=== PATIENT | female | born 1955 | race Caucasian/White ===

== ENCOUNTER → 2020-06-08 | Outpatient (CLI) | payer SELFPAY ==
--- NOTE | 2020-06-08 18:41 | Diagnostic Imaging Report ---
INDICATION: Low back pain. COMPARISON: None FINDINGS: Three views of the lumbar spine demonstrate mild diffuse degenerative disc disease and facet arthropathy. SI joints are symmetric. There is no traumatic malalignment or fracture. No osseous lesion is seen. Moderate constipation is present. IMPRESSION: 1. Mild diffuse degenerative changes. 2. No traumatic malalignment or fracture. 3. Constipation. Dictated by: Dictated on workstation # [id number]
--- NOTE | 2020-06-08 18:42 | Diagnostic Imaging Report ---
INDICATION: Sacral back pain. COMPARISON: None FINDINGS: Three views of the sacrum and coccyx demonstrate normal alignment. There is no subluxation or fracture. No osseous lesion is seen. The SI joints are symmetric. Moderate constipation is present. IMPRESSION: 1. Unremarkable sacrum and coccyx. 2. Constipation. Dictated by: Dictated on workstation # [id number]
== END ==
LOC: RAD FS 16:27
PROVIDERS: ATTEND Nurse Practitioner Family
DX: M47.816 Spondylosis without myelopathy or radiculopathy, lumbar region (principal); K59.00 Constipation, unspecified
CPT/HCPCS: 72100; 72220

== ENCOUNTER 2020-10-15 08:34 | Emergency (ER) | payer OTHER ==
[~2020-10-15] VITALS: Ht 167 cm; Wt 60.0 kg
[2020-10-15] MEDS ORDERED: morphine INJ 10 MG/ML 1ML (SYR OR VIAL) IVP STA (08:59)
[2020-10-15] MEDS ORDERED: ONDANSETRON 4 MG/2 ML (SDV) Z0FRAN IVP ONE (09:00)
[2020-10-15] MEDS ORDERED: KETOROLAC 30 MG/ML VIAL IVP ONE (09:00)
[2020-10-15 09:17] LABS: HEMATOCRIT 44 % (35-52); HEMOGLOBIN 14.4 G/DL (11.5-16.0); MEAN CORPUSCULAR HEMOGLOBIN 30 PG (25-34); WHITE BLOOD COUNT 8.1 10^3/uL (4.3-11.0)
[2020-10-15 09:18] LABS: BASOPHILS % (AUTO) 1 % (0-10); EOSINOPHILS # (AUTO) 0.2 10^3/uL (0.0-0.3); EOSINOPHILS % (AUTO) 2 % (0-10); LYMPHOCYTES # (AUTO) 1.4 X 10^3 (1.0-4.0); LYMPHOCYTES % (AUTO) 17 % (12-44); MEAN CORPUSCULAR HGB CONC 33 G/DL (32-36); MEAN CORPUSCULAR VOLUME 91 FL (80-99); MEAN PLATELET VOLUME 9.9 FL (7.4-10.4); MONOCYTES # (AUTO) 0.5 X 10^3 (0.0-1.0); MONOCYTES % (AUTO) 7 % (0-12); NEUTROPHILS % (AUTO) 74 % (42-75); PLATELET COUNT 302 10^3/uL (130-400)
--- NOTE | 2020-10-15 09:26 | ED General ---
General Chief Complaint: General Problems/Pain Stated Complaint: COCCYX PAIN Nursing Triage Note: Patient presents to the ED with c/o of lower extremity weakness, fecal incontinence, lower back and coccyx pain, and difficulty urinating. Patient states for the past two months she has had intermittent fecal incontinece; she states that she will feel like she needs to have a bowel movement but when she gets to the bathroom she has already had a bowel movement. She reports that she has been seen by her PCP and a was supposed to get an MRI but due to insurance purposes it hasn't been scheduled. She states that today when she woke up she could hardly walk due to the severity of the pain. History of Present Illness Date Seen by Provider: Oct 15, 2020 Time Seen by Provider: 09:25 Initial Comments Patient presenting to the emergency department for evaluation of multiple complaints including back pain lower extremity weakness fecal incontinence difficulty urinating. She says her back pain started 2 months ago and the symptoms have progressed. She says over the past few days she has been wearing a pad and she has not felt that she needed to have a bowel movement but the stool came out on its own. Patient also says that she has been having difficulty urinating as well. I asked her about this and she says that she feels that she needs to urinate but she has to push very hard for the urine to come out. She says she has numbness in her saddle region in between her legs. The weakness is bilateral and she says she has having difficulty ambulating. I asked her if the difficulty ambulating is more so from pain or weakness and she felt that it is more so from pain than actual weakness. She denies any known trauma or overuse. She says she has been following with her doctor for this and has been trying to get an MRI as an outpatient however her insurance would not approve the MRI. She is in no acute distress with normal vital signs. Allergies and Home Medications Allergies Coded Allergies: No Known Drug Allergies (Unverified , 10/15/20) Patient Home Medication List Home Medication List Reviewed: Yes Review of Systems Review of Systems Constitutional: no symptoms reported EENTM: no symptoms reported Respiratory: no symptoms reported Cardiovascular: no symptoms reported Gastrointestinal: other (stool incontinence) Genitourinary: hesitancy Musculoskeletal: back pain Psychiatric/Neurological: Numbness, Weakness All Other Systems Reviewed Negative Unless Noted: Yes Past Eebzdsc-Iwoale-Kzcdpx Hx Patient Social History Tobacco Use?: Yes Tobacco type used: Cigarettes Smoking Status: Current Everyday Smoker Use of E-Cig and/or Vaping dev: No Substance use?: No Alcohol Use?: Yes Alcohol Frequency: Rarely Pt feels they are or have been: No Immunizations Up To Date First/Initial COVID19 Vaccinat: June 2020 COVID19 Vaccine Gis Engineer: [place] Physical Exam Vital Signs Vital Signs - First Documented 10/15/20 08:39 Temp 36.2 Pulse 95 Resp 16 B/P (MAP) 141/119 (126) Pulse Ox 96 O2 Delivery Room Air Capillary Refill : Less Than 3 Seconds Height, Weight, BMI Height: '" Weight: lbs. oz. kg; 21.00 BMI Method: General Appearance: No Apparent Distress, WD/WN HEENT: PERRL/EOMI Neck: Supple Respiratory: No Respiratory Distress Cardiovascular: Regular Rate, Rhythm Gastrointestinal: Non Tender, Soft Rectal: Decreased Tone, Other (rectal and saddle anesthesia) Back: Other (midline and BL paraspinal ttp.) Extremity: Normal Capillary Refill, Normal Inspection Neurologic/Psychiatric: Alert, Oriented x3, Other (big toe 4/5 strength in flexion BL. Big toe extension, ankle flex/ext and knee flex/ext all 5/5) Skin: Warm/Dry Progress/Results/Core Measures Suspected Sepsis SIRS Temperature: Pulse: 95 Respiratory Rate: 16 Laboratory Tests 10/15/20 09:08: White Blood Count 8.1 Blood Pressure 141 /119 Mean: 126 Laboratory Tests 10/15/20 09:08: Platelet Count 302 10/15/20 09:30: Results/Orders Lab Results Laboratory Tests Test 10/15/20 09:08 10/15/20 09:30 Range/Units White Blood Count 8.1 4.3-11.0 10^3/uL Red Blood Count 4.86 4.35-5.85 10^6/uL Hemoglobin 14.4 11.5-16.0 G/DL Hematocrit 44 35-52 % Mean Corpuscular Volume 91 80-99 FL Mean Corpuscular Hemoglobin 30 25-34 PG Mean Corpuscular Hemoglobin Concent 33 32-36 G/DL Red Cell Distribution Width 13.4 10.0-14.5 % Platelet Count 302 130-400 10^3/uL Mean Platelet Volume 9.9 7.4-10.4 FL Immature Granulocyte % (Auto) 0 % Neutrophils (%) (Auto) 74 42-75 % Lymphocytes (%) (Auto) 17 12-44 % Monocytes (%) (Auto) 7 0-12 % Eosinophils (%) (Auto) 2 0-10 % Basophils (%) (Auto) 1 0-10 % Neutrophils # (Auto) 6.0 1.8-7.8 X 10^3 Lymphocytes # (Auto) 1.4 1.0-4.0 X 10^3 Monocytes # (Auto) 0.5 0.0-1.0 X 10^3 Eosinophils # (Auto) 0.2 0.0-0.3 10^3/uL Basophils # (Auto) 0.0 0.0-0.1 10^3/uL Immature Granulocyte # (Auto) 0.0 0.0-0.1 10^3/uL My Orders Orders - SHERMAN CALLAWAY DO Cbc With Automated Diff (10/15/20 08:59) Comprehensive Metabolic Panel (10/15/20 08:59) Partial Thromboplastin Time (10/15/20 08:59) Protime With Inr (10/15/20 08:59) Iv/Invasive Line Insertion .IV start (10/15/20 08:59) Ondansetron Injection (Zofran Injectio (10/15/20 09:00) Ketorolac Injection (Toradol Injection) (10/15/20 09:00) Morphine Injection (Morphine Injection (10/15/20 08:59) Medications Given in ED Current Medications Medications Dose Ordered Sig/Evin Route Start Time Stop Time Status Last Admin Dose Admin Ketorolac Tromethamine 15 mg ONCE ONCE IVP 10/15/20 09:00 10/15/20 09:01 DC 10/15/20 09:18 15 MG Ondansetron HCl 4 mg ONCE ONCE IVP 10/15/20 09:00 10/15/20 09:01 DC 10/15/20 09:18 4 MG Vital Signs/I&O 10/15/20 08:39 Temp 36.2 Pulse 95 Resp 16 B/P (MAP) 141/119 (126) Pulse Ox 96 O2 Delivery Room Air Capillary Refill : Less Than 3 Seconds Blood Pressure Mean: 126 Progress Note : Progress Note Patient has poor rectal tone with saddle anesthesia and subjective complaints of increasing pain and weakness. I am most concerned about cauda equina at this time. I spoke to Dr. Dodd at [facility] to see if they could accommodate her getting an MRI and they said they can do an MRI but did not accept patient as they said she should go to a facility where there is neurosurgery capabilities as to not delay care if she does have abnormal findi ngs on her MRI. I told the patient this and she initially said she would prefer to go to [place] so I called [facility] in [place] and they both had no bed availability. The sister said that she would prefer for them to go to the closest facility to the [facility] which would be [facility] so I spoke to them and they did not have an immediate bed available but they said they would be willing to accommodate her in the emergency room so she will be transferred to soon as possible to the emergency room there for further testing evaluation and treatment. Patient accepted by Dr. Bedoya. She was transferred in stable condition. Departure Impression Primary Impression: Lumbar pain with radiation down right leg Additional Impressions: Fecal incontinence Lower extremity weakness Saddle anesthesia Decreased rectal sphincter tone Disposition: XFER SHT-TRM HOSP Condition: Stable Transfer Transfer Reason: Exceeds level of care Transfer Facility: [facility] Method of Transfer: EMS Departure-Patient Inst. Referrals: SAMY NÚÑEZ APRN (PCP) Primary Care Physician [facility] (Family) Primary Care Physician SHERMAN CALLAWAY DO Oct 15, 2020 09:26
[2020-10-15 09:36] LABS: CHLORIDE 103 MMOL/L (98-107); POTASSIUM 3.7 MMOL/L (3.6-5.0); SODIUM 142 MMOL/L (135-145)
[2020-10-15 09:37] LABS: ALANINE AMINOTRANSFERASE 15 U/L (0-55); ALBUMIN 4.3 GM/DL (3.2-4.5); ALKALINE PHOSPHATASE 157 U/L (40-136); BILIRUBIN,TOTAL 0.3 MG/DL (0.1-1.0); BUN/CREATININE RATIO 20; CALCIUM 9.4 MG/DL (8.5-10.1); CARBON DIOXIDE 29 MMOL/L (21-32); CREATININE SERUM 0.79 MG/DL (0.60-1.30); GFR ESTIMATED > 60; GLUCOSE 110 MG/DL (70-105); TOTAL PROTEIN 6.7 GM/DL (6.4-8.2)
[2020-10-15 10:14] LABS: INR 0.9 (0.8-1.4)
[2020-10-15 10:24] VITALS: BP 104/65
== END 2020-10-15 10:24 | disposition short-term general hospital (02) ==
LOC: MERGE 08:39 → ER FS 08:39
DX: M54.41 Lumbago with sciatica, right side (principal); R15.9 Full incontinence of feces; R53.1 Weakness; G83.4 Cauda equina syndrome; K62.81 Anal sphincter tear (healed) (nontraumatic) (old); F17.210 Nicotine dependence, cigarettes, uncomplicated
CPT/HCPCS: 36415; 80053; 85025; 85610; 85730; 99284

== ENCOUNTER 2020-10-30 09:10 | Outpatient (RCR) | payer OTHER | END 2020-10-30 14:59 | disposition home or self-care (01) | LOC: ONC 09:10 | PROVIDERS: ATTEND Internal Medicine Hematology & Oncology | DX: Z51.0 Encounter for antineoplastic radiation therapy (principal); C18.9 Malignant neoplasm of colon, unspecified; C78.02 Secondary malignant neoplasm of left lung; C78.01 Secondary malignant neoplasm of right lung; F17.210 Nicotine dependence, cigarettes, uncomplicated; Z79.899 Other long term (current) drug therapy | CPT/HCPCS: 77290; 77295; 77300; 77334 ×2; 77412; 77417; G0463; 77338; 77470; 99204; 99214 ==

== ENCOUNTER → 2020-11-03 | Outpatient (CLI) | payer OTHER ==
--- NOTE | 2020-11-04 12:03 | Diagnostic Imaging Report ---
Indication: Lung cancer for staging. Comparison or correlation made with outside CT chest performed 10/17/2020. No prior metabolic imaging. Patient has a remote history of colon cancer The patient received 15 mCi intravenous dose 18 F fluorodeoxyglucose after one hour CT fusion PET calvarial vertex to the mid thighs performed. FINDINGS: An airspace nodule with a diameter 7 mm in the right upper lobe laterally has an SUV max of 2.7. Just inferomedial to that mass a right upper lobe nodule measuring 11 mm has an SUV value maximum of 3.3. Right lower lobe mass measuring 8 mm in diameter has an SUV value of 2.5 Max. The left lower lobe mass 1.3 cm diameter soft tissue in density has an SUV value of 3.1 Max. No FDG avid or pathological appearing axillary, hilar or mediastinal lymph nodes. Additional smaller nodules are present on CT but have low levels or imperceptible levels of metabolic activity likely owing to their small size. Scalp, calvarium and intracranial contents revealed no hypermetabolic asymmetry. Orbits, sinuses and nasal spaces, nasopharynx, oropharynx and hypopharynx reveal no suspicious finding. No pathological-appearing cervical lymph nodes and supraclavicular fossae appeared normal. Liver and adrenals showed no suspicious uptake. There is no metabolically active or pathologically enlarged abdominal, pelvic, mesenteric or retroperitoneal lymph nodes. There are postsurgical changes of the rectum. There is abnormal soft tissue thickening and hypermetabolism in the presacral soft tissues as well as a heterogeneous irregular lucencies in the lower sacrum and upper coccyx eccentric greater right than left. While presacral thickening is a typical finding and post-therapeutic rectum, the degree of FDG avidity is a greater than typically encountered with peak SUV values of 9.8. Regional rectal neoplastic recurrence could not be excluded and its infiltration of the adjacent sacrum is also suspected. This could all be on the basis of a recent post radiation change although correlate clinically. The ileo-inguinal lymph node chains were normal. There is no abdominal, mesenteric or retroperitoneal adenopathy. There is no ascites. Again the liver is normal. There is some physiologic uptake at the level crossing near the ileocecal valve. IMPRESSION: Multiple small moderately hypermetabolic pulmonary nodules suspicious for metastatic disease. Abnormal presacral tissue thickening with abnormal appearance of the lower sacrum both the soft tissue and the sacral bone is a hypermetabolic. Neoplastic recurrence at that level could not be excluded but could also be on the basis of post radiation sequelae. Correlate with the recent pelvic radiation. Negative liver. The remaining abdomen, neck and head were normal. Dictated by: Dictated on workstation # [id number]
== END ==
LOC: RAD 13:30
PROVIDERS: ATTEND Internal Medicine Hematology & Oncology
DX: C20 Malignant neoplasm of rectum (principal); C78.01 Secondary malignant neoplasm of right lung
CPT/HCPCS: 78815; A9552

== ENCOUNTER 2020-11-04 06:24 | Outpatient (CLI) | payer OTHER ==
[~2020-11-04] VITALS: Ht 167.7 cm; Wt 55.6 kg
[2020-11-06] MEDS ORDERED: HYDR-3820 PO (14:09)
[2020-11-06] MEDS ORDERED: GABA-486 PO (14:09)
[2020-11-06] MEDS ORDERED: MORP-68 PO (14:09)
[2020-11-06] MEDS ORDERED: SENN1TAB33 PO (14:09)
== END 2020-11-06 14:17 | disposition home or self-care (01) ==
LOC: PREOP 06:24
PROVIDERS: ATTEND Surgery
DX: Z01.818 Encounter for other preprocedural examination (principal)

== ENCOUNTER 2020-11-11 12:31 | Day surgery (SDC) | payer OTHER ==
[~2020-11-11] VITALS: Ht 167.7 cm; Wt 55.6 kg
[2020-11-11] VITALS (8 sets, daily range): BP systolic 96–118; BP diastolic 63–92
[~2020-11-11 12:31] MED LIST: GABA-486 PO; HYDR-3820 PO; MORP-68 PO; SENN1TAB33 PO
[2020-11-11] MEDS ORDERED: LIDOCAINE/EPI 1%-1:100,000 (XYLOCAINE) 20ML ONE (12:44)
[2020-11-11] MEDS ORDERED: 0.9% SODIUM CHLORIDE PF INJ 20 ML VIAL ONE (12:44)
[2020-11-11] MEDS ORDERED: HEParin (CENTRAL IV FLUSH) 500 UNIT/5 ML SYR ONE (12:44)
[2020-11-11] MEDS ORDERED: LACTATED RINGERS 1,000 ML IV PRN (12:45)
[2020-11-11] MEDS ORDERED: ceFAZolin INJECTION 1,000 MG in WATER (STERILE) FOR INJECTION 10 ML IV ONE (12:45)
--- NOTE | 2020-11-11 12:56 | Progress Note-Pre Operative ---
Pre-Operative Progress Note H&P Reviewed The H&P was reviewed, patient examined and no changes noted. Time Seen by Provider: 12:52 Date H&P Reviewed: Nov 11, 2020 Time H&P Reviewed: 12:52 Pre-Operative Diagnosis: Colon CA, Venous insufficiency BROOKLYN WARREN DO Nov 11, 2020 12:56
[2020-11-11] MEDS ORDERED: MIDAZOLAM 2 MG/2 ML (VERSED) VIAL ONE ×2 (14:25→14:38)
[2020-11-11] MEDS ORDERED: KETAMINE SYRINGE 50 MG/5 ML SYRINGE ONE (14:25)
[2020-11-11] MEDS ORDERED: LIDOCAINE PF 2% 5 ML (XYLOCAINE) VIAL ONE (14:25)
[2020-11-11] MEDS ORDERED: proPOfol 200 MG/20 ML (DIPRIVAN) VIAL IV ONE (14:25)
--- NOTE | 2020-11-11 15:19 | Progress Note-Post Operative ---
Post-Operative Progess Note Surgeon (s)/Blocker And Cutter Contact Lens (s) Surgeon BROOKLYN WARREN DO Blocker And Cutter Contact Lens: none Pre-Operative Diagnosis Colon CA, Venous insufficiency Post-Operative Diagnosis same Procedure & Operative Findings Date of Procedure 11/11/20 Procedure Performed/Findings PROCEDURE: Monika-Cath placement The patient was taken to the operating suite, was prepped and draped in the sterile fashion. A surgical pause was performed. Local anesthetic was infiltrated at the clavicle and along the tract to the right anterior chest, where more local was placed so the pocket could be created. Using an 18 gauge finder needle with negative inspiration the right subclavian vein was accessed on the first attempt and dark nonpulsatile blood was withdrawn. The wire was inserted and fluoroscopy assured proper placement. The needle was removed. The regular wire was inserted and fluoroscopy assured proper placement. The wire was then secured. A #11 blade scalpel was used to make an incision over the right chest and along guidewire. Cautery was used to dissect down to the pectoral fascia. A pocket was created with blunt dissection. The dilator sheath was then advanced over the wire under fluoroscopy and the dilator and wire were removed. The Groshong catheter was inserted through the sheath and the sheath was then removed. The Groshong wire was removed. The catheter was then tunneled to the right chest pocket. Fluoroscopy was used to cut to length and this was then attached to the port which was then placed within the pocket. The port was then accessed without difficulty. It was then flushed with saline and then heparin. The subcutaneous tissues were then reapproximated using 3-0 Vicryl. Finally the skin was closed with 4-0 undyed monocryl, 3 interrupted sutures. The areas were then washed and dried. Skin Affix was placed over incision. The insertion point of the neck Skin Affix was placed over the incision. The patient tolerated the procedure well without complication and was taken to recovery room in stable condition. Anesthesia Type IV sedation by Anesthesia Estimated Blood Loss Estimated blood loss (mL): appx 15ml Specimens/Packing Specimens Removed BROOKLYN Larose DO Nov 11, 2020 15:19
--- NOTE | 2020-11-11 15:20 | Discharge Inst-Surgical ---
Discharge Inst-Surgical Depart Medication/Instructions New, Converted or Re-Newed RX: Other (use home meds) Patient Instructions Follow up Appt: Make appointment for 1 week. [phone] Instructions: No lifting greater than 20 pounds. No strenuous activity. May shower in 24 hours, no tub bath or soaking. Use incentive spirometer at home as directed. No Smoking Skin/Wound Care: May remove bandages in am. You need to leave the Dermabond on incision it will fall off on it's own. Symptoms to Report: Appetite Changes, Extremity Discoloration, Numbness/Tingling, Swelling Increased, Bleeding Excessive, Eyesight Changes, Pain Increased, Urine Color Change, Constipation(Persistent), Fever over 101 degree F, Pain/Pressure in chest, Urinating Difficulty, Cough Up/Vomit Blood, Heart Beat Irreg/Pounding, Pain/Pressure in jaw, Cramps in feet or legs, Lightheadedness, Pain/Pressure in shoulder, Diarrhea(Persistent), Memory Changes Suddenly, Questions/Concerns, Weight gain consecutive days, Dizziness/Fainting, Nausea/Vomiting, Shortness of Breath, Weight gain over 2 pounds If questions or concerns contact your physician Or seek help at emergency department. Activity Activity as Tolerated: Yes Activity Instructions: Avoid Stress to Incision Driving Instructions: No Driving/Refer to Dr. Medrano Discharge Diet: No Restrictions Diet After 24 Hours: Clear Liquid if Nauseous If Any Problems/Questions/Issu: Contact Your Physician, Go to Emergency Room Skin/Wound Care Infection Signs and Symptoms: Increased Redness, Foul Odor of Wound, Increased Drainage, Skin Itchy or Has a Rash, Increased Swelling, Temperature Above 101 F Bathing Instructions: Shower Ice Pack: Ice On and Off Site BROOKLYN WARREN DO Nov 11, 2020 15:20
--- NOTE | 2020-11-11 15:22 | Anesthesia-General Post-Op ---
MAC Patient Condition Mental Status/LOC: Same as Preop Cardiovascular: Satisfactory Nausea/Vomiting: Absent Respiratory: Satisfactory Pain: Controlled Complications: Absent Post Op Complications Complications None Follow Up Care/Instructions Patient Instructions None needed. Anesthesiology Discharge Order Discharge Order Patient is doing well, no complaints, stable vital signs, no apparent adverse anesthesia problems. BILL TEMPLE DO Nov 11, 2020 15:22
[2020-11-11] MEDS ORDERED: ONDANSETRON 4 MG/2 ML (SDV) Z0FRAN IVP PRN (15:30)
[2020-11-11] MEDS ORDERED: morphine INJ 10 MG/ML 1ML (SYR OR VIAL) IVP ONE (15:30)
--- NOTE | 2020-11-11 16:49 | Diagnostic Imaging Report ---
INDICATION: Port-A-Cath placement. History of lung cancer. COMPARISON: None. TOTAL FLUOROSCOPY TIME: 18 seconds. TOTAL NUMBER OF FLUOROSCOPIC IMAGES SAVED: 1. FINDINGS: Single intraoperative image intensifier view of the chest was obtained during Port-A-Cath placement. Image provided shows right subclavian venous approach. Central tip terminates in the low SVC. Evaluation for pneumothorax is suboptimal given fluoroscopic modality. Please note, interpreting radiologist was not present during the procedure. IMPRESSION: 1. Fluoroscopic guidance provided during Port-A-Cath placement. Dictated by: Dictated on workstation # [id number]
== END 2020-11-11 16:40 | disposition home or self-care (01) ==
LOC: SDC 12:31
PROVIDERS: ATTEND Surgery
DX: C18.9 Malignant neoplasm of colon, unspecified (principal); I87.2 Venous insufficiency (chronic) (peripheral); F17.210 Nicotine dependence, cigarettes, uncomplicated
CPT/HCPCS: 76000; 87081

== ENCOUNTER → 2021-01-07 | Outpatient (CLI) | payer OTHER ==
[~2021-01-07] MED LIST changes: +CATHETER FLUSH 10 ML SYR IV PRN; +HOLD METFORMIN - RECEIVED CONTRAST 20 ML VIAL IV SCH; +IOHEXOL 350 MG/ML 100 ML (OMNIPAQUE 350) VIAL IV ONE; +NS 100 ML (IVPB) BAG IV ONE
[2021-01-07] MEDS: CATHETER FLUSH 10 ML SYR IV PRN ×2 (12:52→13:17)
--- NOTE | 2021-01-07 14:57 | Diagnostic Imaging Report ---
EXAMINATION: CT chest with intravenous contrast, CT abdomen and pelvis without and with intravenous contrast. TECHNIQUE: Pre and post intravenous contrast axial imaging of the abdomen and pelvis and post contrast axial imaging of the chest were performed. All CT scans use one or more of the following dose optimizing techniques: automated exposure control, MA and/or KvP adjustment based on patient size and exam type or iterative reconstruction. HISTORY: SECONDARY MALIGNANT NEOPLASM OF BONE COMPARISON: PET/CT 11/03/2020 FINDINGS: Thyroid: The thyroid is normal. Mediastinum: Heart size is normal without significant pericardial effusion. Calcifications of the aorta and coronary vessels. Thoracic aorta is normal in caliber. Right-sided portacatheter is present. No suspicious lymphadenopathy. Lungs and airways: There are background emphysematous changes of the lungs without consolidation, pleural effusion, or pneumothorax. There are multiple bilateral pulmonary nodules which are stable in size from 11/03/2020. A dental sales representative nodule in the right lower lobe measures 1.0 cm (series 5 image 74). A dental sales representative nodule in the right upper lobe measures 1.1 cm (series 5 image 55). A dental sales representative nodule left lower lobe measures 1.2 cm (series 5 image 103). There is increased fibrosis or consolidation within the right middle lobe. The airways are normal. Solid organs: The liver is normal without focal lesion. The gallbladder is normal. There is no biliary ductal dilation. Pancreas is normal. Spleen is normal. Adrenal glands are normal. The kidneys are normal without hydronephrosis. Bowel: Surgical changes of the colon. There is no bowel obstruction. Moderate amount of stool seen throughout the colon. Peritoneum: There is no intraperitoneal free fluid or free air. No suspicious lymphadenopathy. Vasculature: Calcification of the aorta without aneurysm. Musculoskeletal: Stable appearance of the mixed lytic and soft tissue mass within the sacrum and presacral space. There is a linear abnormality through the right sacral ala which is new from prior exam. Pelvis: The uterus and adnexa are normal. The urinary bladder is normal. IMPRESSION: 1. Stable bilateral pulmonary nodules. 2. Stable appearance of the mixed lytic and soft tissue mass within the sacrum and presacral space. 3. Likely new right sacral fracture concern for pathologic fracture. Dictated by: Dictated on workstation # [id number]
--- NOTE | 2021-01-07 16:30 | Diagnostic Imaging Report ---
Nuclear medicine skeletal scintigraphy. HISTORY: Bilateral sacral pain. COMPARISON: None available. TECHNIQUE: After intravenous administration of 24 mCi of technetium 99 MDP, the patient was allowed uptake for three hours. Subsequently, whole body anterior and posterior projection images were obtained as well as dedicated right and left lateral views of the pelvis. FINDINGS: There is physiologic distribution of radiotracer including in the collecting systems and bladder. The bladder partially obscures the pelvis. In the region of the vertically oriented fracture through the right sacrum and the mixed lytic and sclerotic lesion in the right sacrum on prior CT, there is minimally increased uptake on the bone scan seen only in the posterior projection. However, portions of this area are obscured by urinary bladder activity. No other focal uptake is seen. IMPRESSION: 1. The sacrum is largely obscured by bladder activity. There is minimally increased uptake in the right aspect of the sacrum in the previously seen area of the soft tissue mass and fracture. Dictated by: Dictated on workstation # [id number]
== END ==
LOC: CARD 12:00
PROVIDERS: ATTEND Nurse Practitioner Adult Health
DX: C20 Malignant neoplasm of rectum (principal); C79.51 Secondary malignant neoplasm of bone; C78.01 Secondary malignant neoplasm of right lung; R91.8 Other nonspecific abnormal finding of lung field
CPT/HCPCS: 71260; 74178; 78306; A9503

== ENCOUNTER 2021-01-18 12:52 | Outpatient (RCR) | payer OTHER ==
[2020-11-10 10:09] LABS: BASOPHILS % (AUTO) 0 % (0-10); EOSINOPHILS # (AUTO) 0.3 10^3/uL (0.0-0.3); EOSINOPHILS % (AUTO) 3 % (0-10); HEMATOCRIT 42 % (35-52); HEMOGLOBIN 13.3 g/dL (11.5-16.0); LYMPHOCYTES # (AUTO) 0.9 10^3/uL (1.0-4.0); LYMPHOCYTES % (AUTO) 10 % (12-44); MEAN CORPUSCULAR HEMOGLOBIN 29 pg (25-34); MEAN CORPUSCULAR HGB CONC 32 g/dL (32-36); MEAN CORPUSCULAR VOLUME 93 fL (80-99); MEAN PLATELET VOLUME 9.8 fL (9.0-12.2); MONOCYTES # (AUTO) 0.6 10^3/uL (0.0-1.0); MONOCYTES % (AUTO) 7 % (0-12); NEUTROPHILS # (AUTO) 6.7 10^3/uL (1.8-7.8); NEUTROPHILS % (AUTO) 79 % (42-75); PLATELET COUNT 385 10^3/uL (130-400); WHITE BLOOD COUNT 8.5 10^3/uL (4.3-11.0)
[2020-11-10 10:27] LABS: ALBUMIN 3.9 GM/DL (3.2-4.5); BILIRUBIN,TOTAL 0.4 MG/DL (0.1-1.0); CALCIUM 9.6 MG/DL (8.5-10.1); CREATININE SERUM 0.75 MG/DL (0.60-1.30); MAGNESIUM 1.9 MG/DL (1.6-2.4); POTASSIUM 4.3 MMOL/L (3.6-5.0); TOTAL PROTEIN 6.9 GM/DL (6.4-8.2)
[2020-11-18 14:56] LABS: CALCIUM 9.4 MG/DL (8.5-10.1); CREATININE SERUM 0.75 MG/DL (0.60-1.30); POTASSIUM 4.9 MMOL/L (3.6-5.0)
[2020-11-25 14:11] LABS: BASOPHILS % (AUTO) 0 % (0-10); EOSINOPHILS # (AUTO) 0.3 10^3/uL (0.0-0.3); EOSINOPHILS % (AUTO) 5 % (0-10); HEMATOCRIT 41 % (35-52); LYMPHOCYTES # (AUTO) 0.8 10^3/uL (1.0-4.0); LYMPHOCYTES % (AUTO) 15 % (12-44); MEAN CORPUSCULAR HEMOGLOBIN 30 pg (25-34); MEAN CORPUSCULAR HGB CONC 32 g/dL (32-36); MEAN CORPUSCULAR VOLUME 94 fL (80-99); MEAN PLATELET VOLUME 10.2 fL (9.0-12.2); MONOCYTES # (AUTO) 0.5 10^3/uL (0.0-1.0); MONOCYTES % (AUTO) 10 % (0-12); NEUTROPHILS # (AUTO) 3.7 10^3/uL (1.8-7.8); NEUTROPHILS % (AUTO) 70 % (42-75); PLATELET COUNT 226 10^3/uL (130-400); WHITE BLOOD COUNT 5.3 10^3/uL (4.3-11.0)
[2020-11-25 14:21] LABS: CALCIUM 9.4 MG/DL (8.5-10.1); CREATININE SERUM 0.76 MG/DL (0.60-1.30); POTASSIUM 4.2 MMOL/L (3.6-5.0)
[2020-12-01 10:06] LABS: BASOPHILS % (AUTO) 1 % (0-10); EOSINOPHILS # (AUTO) 0.2 10^3/uL (0.0-0.3); EOSINOPHILS % (AUTO) 4 % (0-10); HEMATOCRIT 44 % (35-52); LYMPHOCYTES # (AUTO) 0.5 10^3/uL (1.0-4.0); LYMPHOCYTES % (AUTO) 11 % (12-44); MEAN CORPUSCULAR HEMOGLOBIN 30 pg (25-34); MEAN CORPUSCULAR HGB CONC 32 g/dL (32-36); MEAN CORPUSCULAR VOLUME 93 fL (80-99); MEAN PLATELET VOLUME 10.1 fL (9.0-12.2); MONOCYTES # (AUTO) 0.5 10^3/uL (0.0-1.0); MONOCYTES % (AUTO) 12 % (0-12); NEUTROPHILS # (AUTO) 3.2 10^3/uL (1.8-7.8); NEUTROPHILS % (AUTO) 73 % (42-75); PLATELET COUNT 261 10^3/uL (130-400); WHITE BLOOD COUNT 4.4 10^3/uL (4.3-11.0)
[2020-12-01 10:22] LABS: CALCIUM 9.7 MG/DL (8.5-10.1); CREATININE SERUM 0.78 MG/DL (0.60-1.30); POTASSIUM 4.1 MMOL/L (3.6-5.0)
[2020-12-08 10:10] LABS: BASOPHILS % (AUTO) 1 % (0-10); EOSINOPHILS # (AUTO) 0.2 10^3/uL (0.0-0.3); EOSINOPHILS % (AUTO) 4 % (0-10); HEMATOCRIT 42 % (35-52); HEMOGLOBIN 13.2 g/dL (11.5-16.0); LYMPHOCYTES # (AUTO) 0.6 10^3/uL (1.0-4.0); LYMPHOCYTES % (AUTO) 14 % (12-44); MEAN CORPUSCULAR HEMOGLOBIN 30 pg (25-34); MEAN CORPUSCULAR HGB CONC 32 g/dL (32-36); MEAN CORPUSCULAR VOLUME 94 fL (80-99); MEAN PLATELET VOLUME 10.3 fL (9.0-12.2); MONOCYTES # (AUTO) 0.5 10^3/uL (0.0-1.0); MONOCYTES % (AUTO) 11 % (0-12); NEUTROPHILS # (AUTO) 2.9 10^3/uL (1.8-7.8); NEUTROPHILS % (AUTO) 71 % (42-75); PLATELET COUNT 239 10^3/uL (130-400); WHITE BLOOD COUNT 4.1 10^3/uL (4.3-11.0)
[2020-12-08 10:32] LABS: ALBUMIN 3.9 GM/DL (3.2-4.5); BILIRUBIN,TOTAL 0.4 MG/DL (0.1-1.0); CALCIUM 9.6 MG/DL (8.5-10.1); CREATININE SERUM 0.69 MG/DL (0.60-1.30); POTASSIUM 4.1 MMOL/L (3.6-5.0); TOTAL PROTEIN 6.8 GM/DL (6.4-8.2)
[2020-12-23 10:17] LABS: BASOPHILS % (AUTO) 1 % (0-10); EOSINOPHILS # (AUTO) 0.1 10^3/uL (0.0-0.3); EOSINOPHILS % (AUTO) 4 % (0-10); HEMATOCRIT 41 % (35-52); HEMOGLOBIN 13.1 g/dL (11.5-16.0); LYMPHOCYTES # (AUTO) 0.4 10^3/uL (1.0-4.0); LYMPHOCYTES % (AUTO) 12 % (12-44); MEAN CORPUSCULAR HEMOGLOBIN 30 pg (25-34); MEAN CORPUSCULAR HGB CONC 32 g/dL (32-36); MEAN CORPUSCULAR VOLUME 95 fL (80-99); MEAN PLATELET VOLUME 10.2 fL (9.0-12.2); MONOCYTES # (AUTO) 0.4 10^3/uL (0.0-1.0); MONOCYTES % (AUTO) 11 % (0-12); NEUTROPHILS # (AUTO) 2.7 10^3/uL (1.8-7.8); NEUTROPHILS % (AUTO) 73 % (42-75); PLATELET COUNT 230 10^3/uL (130-400); WHITE BLOOD COUNT 3.7 10^3/uL (4.3-11.0)
[2020-12-23 10:34] LABS: ALBUMIN 4.1 GM/DL (3.2-4.5); BILIRUBIN,TOTAL 0.6 MG/DL (0.1-1.0); CALCIUM 9.8 MG/DL (8.5-10.1); CREATININE SERUM 0.73 MG/DL (0.60-1.30); POTASSIUM 3.8 MMOL/L (3.6-5.0); TOTAL PROTEIN 6.7 GM/DL (6.4-8.2)
[2021-01-13 13:20] LABS: BASOPHILS % (AUTO) 0 % (0-10); EOSINOPHILS % (AUTO) 1 % (0-10); HEMATOCRIT 44 % (35-52); HEMOGLOBIN 13.9 g/dL (11.5-16.0); LYMPHOCYTES # (AUTO) 0.6 10^3/uL (1.0-4.0); LYMPHOCYTES % (AUTO) 10 % (12-44); MEAN CORPUSCULAR HEMOGLOBIN 30 pg (25-34); MEAN CORPUSCULAR HGB CONC 32 g/dL (32-36); MEAN CORPUSCULAR VOLUME 94 fL (80-99); MEAN PLATELET VOLUME 9.7 fL (9.0-12.2); MONOCYTES # (AUTO) 0.4 10^3/uL (0.0-1.0); MONOCYTES % (AUTO) 7 % (0-12); NEUTROPHILS % (AUTO) 82 % (42-75); PLATELET COUNT 338 10^3/uL (130-400); WHITE BLOOD COUNT 6.1 10^3/uL (4.3-11.0)
[2021-01-13 13:41] LABS: ALBUMIN 4.1 GM/DL (3.2-4.5); BILIRUBIN,TOTAL 0.4 MG/DL (0.1-1.0); CALCIUM 9.8 MG/DL (8.5-10.1); CREATININE SERUM 0.74 MG/DL (0.60-1.30)
[~2021-01-18] VITALS: Ht 167.6 cm; Wt 53.1 kg
[~2021-01-18 12:52] MED LIST changes: +BEVACIZUMAB BVZR IV SCH; -CATHETER FLUSH 10 ML SYR IV PRN; +D5W 500 ML IV (CANCER CTR) 500 ML IV SCH; +D5W IV SCH; +FOSAPREPITANT (CANCER CENTER) 150 MG in NS (IVPB) CANCER CENTER ONLY 150 ML IV SCH; -HOLD METFORMIN - RECEIVED CONTRAST 20 ML VIAL IV SCH; -IOHEXOL 350 MG/ML 100 ML (OMNIPAQUE 350) VIAL IV ONE; +LEUCOVORIN CALCIUM IV SCH; -NS 100 ML (IVPB) BAG IV ONE; +NS IV SCH; +OXALIPLATIN 100 MG, OXALIPLATIN (GENERIC) 30 MG in D5W 250 ML IVPB (CANCER CTR) 250 ML IV SCH
== END 2021-01-31 | disposition home or self-care (01) ==
LOC: ONC 12:52
PROVIDERS: ATTEND Internal Medicine Hematology & Oncology
DX: Z51.0 Encounter for antineoplastic radiation therapy (principal); C20 Malignant neoplasm of rectum; C18.9 Malignant neoplasm of colon, unspecified; C78.01 Secondary malignant neoplasm of right lung; I87.2 Venous insufficiency (chronic) (peripheral)
CPT/HCPCS: 36591; 77336; 77386; 80048; 80053; 82378; 83735; 85025; 96367; 96368; 96375; 96413; 96416; 99213

== ENCOUNTER → 2021-01-25 | Outpatient (CLI) | payer OTHER ==
[~2021-01-25] MED LIST changes: -BEVACIZUMAB BVZR IV SCH; -D5W 500 ML IV (CANCER CTR) 500 ML IV SCH; -D5W IV SCH; -FOSAPREPITANT (CANCER CENTER) 150 MG in NS (IVPB) CANCER CENTER ONLY 150 ML IV SCH; -LEUCOVORIN CALCIUM IV SCH; -NS IV SCH; -OXALIPLATIN 100 MG, OXALIPLATIN (GENERIC) 30 MG in D5W 250 ML IVPB (CANCER CTR) 250 ML IV SCH
[2021-01-25 12:30] LABS: HEMATOCRIT 40 % (35-52); MEAN CORPUSCULAR HEMOGLOBIN 30 pg (25-34); MEAN CORPUSCULAR HGB CONC 33 g/dL (32-36); MEAN CORPUSCULAR VOLUME 92 fL (80-99); MEAN PLATELET VOLUME 10.6 fL (9.0-12.2); PLATELET COUNT 284 10^3/uL (130-400); WHITE BLOOD COUNT 6.2 10^3/uL (4.3-11.0)
[2021-01-25 12:31] LABS: BASOPHILS % (AUTO) 0 % (0-10); EOSINOPHILS # (AUTO) 0.2 10^3/uL (0.0-0.3); EOSINOPHILS % (AUTO) 3 % (0-10); LYMPHOCYTES # (AUTO) 0.7 X 10^3 (1.0-4.0); LYMPHOCYTES % (AUTO) 12 % (12-44); MONOCYTES # (AUTO) 0.5 X 10^3 (0.0-1.0); MONOCYTES % (AUTO) 9 % (0-12); NEUTROPHILS # (AUTO) 4.8 X 10^3 (1.8-7.8); NEUTROPHILS % (AUTO) 77 % (42-75)
== END ==
LOC: LAB FS 12:18
PROVIDERS: ATTEND Nurse Practitioner Adult Health
DX: C20 Malignant neoplasm of rectum (principal)
CPT/HCPCS: 36415; 85025

== ENCOUNTER → 2021-01-25 | Outpatient (CLI) | payer OTHER ==
[2021-01-25 11:56] LABS: CALCIUM 8.9 MG/DL (8.5-10.1); CREATININE SERUM 0.69 MG/DL (0.60-1.30); POTASSIUM 4.3 MMOL/L (3.6-5.0)
== END ==
LOC: LAB FS 10:13
PROVIDERS: ATTEND Internal Medicine Hematology & Oncology
DX: C20 Malignant neoplasm of rectum (principal)
CPT/HCPCS: 36415; 80048

== ENCOUNTER → 2021-02-08 | Outpatient (CLI) | payer OTHER ==
[2021-02-08 11:02] LABS: HEMATOCRIT 40 % (35-52); HEMOGLOBIN 13.4 g/dL (11.5-16.0); MEAN CORPUSCULAR HEMOGLOBIN 30 pg (25-34); MEAN CORPUSCULAR HGB CONC 33 g/dL (32-36); MEAN CORPUSCULAR VOLUME 90 fL (80-99); WHITE BLOOD COUNT 7.6 10^3/uL (4.3-11.0)
[2021-02-08 11:03] LABS: BASOPHILS % (AUTO) 0 % (0-10); EOSINOPHILS # (AUTO) 0.1 10^3/uL (0.0-0.3); EOSINOPHILS % (AUTO) 1 % (0-10); LYMPHOCYTES # (AUTO) 0.5 X 10^3 (1.0-4.0); LYMPHOCYTES % (AUTO) 7 % (12-44); MEAN PLATELET VOLUME 10.3 fL (9.0-12.2); MONOCYTES # (AUTO) 1.1 X 10^3 (0.0-1.0); MONOCYTES % (AUTO) 14 % (0-12); NEUTROPHILS # (AUTO) 5.9 X 10^3 (1.8-7.8); NEUTROPHILS % (AUTO) 77 % (42-75); PLATELET COUNT 261 10^3/uL (130-400)
[2021-02-08 12:00] LABS: EOSINOPHILS % (MANUAL) 1 %; LYMPHOCYTES % (MANUAL) 9 %; MONOCYTES % (MANUAL) 7 %; NEUTROPHILS % (MANUAL) 83 %; PLATELET ESTIMATE ADEQUATE
[2021-02-08 12:01] LABS: RBC MORPH NORMAL
[2021-02-08 12:25] LABS: CALCIUM 9.3 MG/DL (8.5-10.1); CREATININE SERUM 0.62 MG/DL (0.60-1.30); POTASSIUM 4.2 MMOL/L (3.6-5.0)
== END ==
LOC: LAB FS 10:10
PROVIDERS: ATTEND Nurse Practitioner Adult Health
DX: C20 Malignant neoplasm of rectum (principal); C79.51 Secondary malignant neoplasm of bone; C78.01 Secondary malignant neoplasm of right lung
CPT/HCPCS: 36415; 80048; 85007; 85027

== ENCOUNTER → 2021-02-22 | Outpatient (CLI) | payer OTHER ==
[2021-02-22 10:31] LABS: HEMATOCRIT 41 % (35-52); HEMOGLOBIN 13.1 g/dL (11.5-16.0); MEAN CORPUSCULAR HEMOGLOBIN 30 pg (25-34); MEAN CORPUSCULAR HGB CONC 32 g/dL (32-36); MEAN CORPUSCULAR VOLUME 93 fL (80-99); PLATELET COUNT 390 10^3/uL (130-400); WHITE BLOOD COUNT 4.2 10^3/uL (4.3-11.0)
[2021-02-22 10:32] LABS: BASOPHILS % (AUTO) 1 % (0-10); EOSINOPHILS % (AUTO) 3 % (0-10); LYMPHOCYTES % (AUTO) 24 % (12-44); MEAN PLATELET VOLUME 9.3 fL (9.0-12.2); MONOCYTES % (AUTO) 12 % (0-12); NEUTROPHILS % (AUTO) 60 % (42-75)
[2021-02-22 10:33] LABS: EOSINOPHILS # (AUTO) 0.1 10^3/uL (0.0-0.3); MONOCYTES # (AUTO) 0.5 X 10^3 (0.0-1.0); NEUTROPHILS # (AUTO) 2.5 X 10^3 (1.8-7.8)
[2021-02-22 10:48] LABS: CALCIUM 8.8 MG/DL (8.5-10.1); CREATININE SERUM 0.63 MG/DL (0.60-1.30)
== END ==
LOC: LAB FS 10:15
PROVIDERS: ATTEND Nurse Practitioner Adult Health
DX: C20 Malignant neoplasm of rectum (principal); C79.51 Secondary malignant neoplasm of bone; C78.01 Secondary malignant neoplasm of right lung
CPT/HCPCS: 36415; 80048; 85025

== ENCOUNTER 2021-03-29 14:11 | Outpatient (RCR) | payer OTHER ==
[2021-02-01 10:54] LABS: BASOPHILS % (AUTO) 0 % (0-10); EOSINOPHILS # (AUTO) 0.1 10^3/uL (0.0-0.3); EOSINOPHILS % (AUTO) 1 % (0-10); HEMATOCRIT 38 % (35-52); HEMOGLOBIN 12.4 g/dL (11.5-16.0); LYMPHOCYTES # (AUTO) 0.5 10^3/uL (1.0-4.0); LYMPHOCYTES % (AUTO) 6 % (12-44); MEAN CORPUSCULAR HEMOGLOBIN 30 pg (25-34); MEAN CORPUSCULAR HGB CONC 33 g/dL (32-36); MEAN CORPUSCULAR VOLUME 92 fL (80-99); MEAN PLATELET VOLUME 10.3 fL (9.0-12.2); MONOCYTES # (AUTO) 0.8 10^3/uL (0.0-1.0); MONOCYTES % (AUTO) 9 % (0-12); NEUTROPHILS # (AUTO) 7.2 10^3/uL (1.8-7.8); NEUTROPHILS % (AUTO) 84 % (42-75); PLATELET COUNT 235 10^3/uL (130-400); WHITE BLOOD COUNT 8.6 10^3/uL (4.3-11.0)
[2021-02-01 11:13] LABS: ALBUMIN 3.9 GM/DL (3.2-4.5); BILIRUBIN,TOTAL 0.5 MG/DL (0.1-1.0); CALCIUM 9.8 MG/DL (8.5-10.1); CREATININE SERUM 0.69 MG/DL (0.60-1.30); MAGNESIUM 2.2 MG/DL (1.6-2.4); TOTAL PROTEIN 6.8 GM/DL (6.4-8.2)
[2021-02-15 11:28] LABS: BASOPHILS % (AUTO) 0 % (0-10); EOSINOPHILS % (AUTO) 1 % (0-10); HEMATOCRIT 37 % (35-52); HEMOGLOBIN 12.2 g/dL (11.5-16.0); LYMPHOCYTES # (AUTO) 0.6 10^3/uL (1.0-4.0); LYMPHOCYTES % (AUTO) 7 % (12-44); MEAN CORPUSCULAR HEMOGLOBIN 30 pg (25-34); MEAN CORPUSCULAR HGB CONC 33 g/dL (32-36); MEAN CORPUSCULAR VOLUME 91 fL (80-99); MEAN PLATELET VOLUME 9.2 fL (9.0-12.2); MONOCYTES # (AUTO) 0.9 10^3/uL (0.0-1.0); MONOCYTES % (AUTO) 12 % (0-12); NEUTROPHILS # (AUTO) 6.2 10^3/uL (1.8-7.8); NEUTROPHILS % (AUTO) 80 % (42-75); PLATELET COUNT 317 10^3/uL (130-400); WHITE BLOOD COUNT 7.8 10^3/uL (4.3-11.0)
[2021-02-15 11:44] LABS: ALBUMIN 3.6 GM/DL (3.2-4.5); BILIRUBIN,TOTAL 0.4 MG/DL (0.1-1.0); CALCIUM 9.2 MG/DL (8.5-10.1); CREATININE SERUM 0.57 MG/DL (0.60-1.30); MAGNESIUM 2.1 MG/DL (1.6-2.4); POTASSIUM 4.1 MMOL/L (3.6-5.0); TOTAL PROTEIN 6.7 GM/DL (6.4-8.2)
[2021-03-01 10:37] LABS: BASOPHILS % (AUTO) 0 % (0-10); EOSINOPHILS % (AUTO) 1 % (0-10); HEMATOCRIT 37 % (35-52); HEMOGLOBIN 11.9 g/dL (11.5-16.0); LYMPHOCYTES # (AUTO) 0.4 10^3/uL (1.0-4.0); LYMPHOCYTES % (AUTO) 10 % (12-44); MEAN CORPUSCULAR HEMOGLOBIN 30 pg (25-34); MEAN CORPUSCULAR HGB CONC 33 g/dL (32-36); MEAN CORPUSCULAR VOLUME 94 fL (80-99); MEAN PLATELET VOLUME 9.9 fL (9.0-12.2); MONOCYTES # (AUTO) 0.6 10^3/uL (0.0-1.0); MONOCYTES % (AUTO) 13 % (0-12); NEUTROPHILS # (AUTO) 3.4 10^3/uL (1.8-7.8); NEUTROPHILS % (AUTO) 76 % (42-75); PLATELET COUNT 207 10^3/uL (130-400); WHITE BLOOD COUNT 4.5 10^3/uL (4.3-11.0)
[2021-03-01 10:55] LABS: ALBUMIN 3.4 GM/DL (3.2-4.5); BILIRUBIN,TOTAL 0.2 MG/DL (0.1-1.0); CALCIUM 8.9 MG/DL (8.5-10.1); CREATININE SERUM 0.63 MG/DL (0.60-1.30); TOTAL PROTEIN 6.2 GM/DL (6.4-8.2)
[2021-03-15 11:16] LABS: BASOPHILS % (AUTO) 1 % (0-10); EOSINOPHILS % (AUTO) 1 % (0-10); HEMATOCRIT 38 % (35-52); LYMPHOCYTES # (AUTO) 0.5 10^3/uL (1.0-4.0); LYMPHOCYTES % (AUTO) 16 % (12-44); MEAN CORPUSCULAR HEMOGLOBIN 30 pg (25-34); MEAN CORPUSCULAR HGB CONC 31 g/dL (32-36); MEAN CORPUSCULAR VOLUME 94 fL (80-99); MEAN PLATELET VOLUME 9.7 fL (9.0-12.2); MONOCYTES # (AUTO) 0.5 10^3/uL (0.0-1.0); MONOCYTES % (AUTO) 16 % (0-12); NEUTROPHILS # (AUTO) 2.1 10^3/uL (1.8-7.8); NEUTROPHILS % (AUTO) 67 % (42-75); PLATELET COUNT 224 10^3/uL (130-400); WHITE BLOOD COUNT 3.2 10^3/uL (4.3-11.0)
[2021-03-15 11:39] LABS: ALBUMIN 3.5 GM/DL (3.2-4.5); BILIRUBIN,TOTAL 0.2 MG/DL (0.1-1.0); CALCIUM 8.9 MG/DL (8.5-10.1); CREATININE SERUM 0.67 MG/DL (0.60-1.30); MAGNESIUM 2.1 MG/DL (1.6-2.4); TOTAL PROTEIN 6.1 GM/DL (6.4-8.2)
[~2021-03-29 14:11] MED LIST changes: +BEVACIZUMAB BVZR IV SCH; +D5W 500 ML IV (CANCER CTR) 500 ML IV SCH; +D5W IV SCH; +FOSAPREPITANT (CANCER CENTER) 150 MG in NS (IVPB) CANCER CENTER ONLY 150 ML IV SCH; +LEUCOVORIN CALCIUM IV SCH; +NS IV SCH; +OXALIPLATIN 100 MG, OXALIPLATIN (GENERIC) 30 MG in D5W 250 ML IVPB (CANCER CTR) 250 ML IV SCH; +fluorouraciL 3,000 MG in NS (IVPB) CANCER CENTER 87.2 ML IV SCH
[2021-03-29] MEDS ORDERED: ALTEPLASE 2 MG (CATHFLO) CANCER CENTER IV ONE (14:30)
[2021-03-29 15:40] LABS: BASOPHILS % (AUTO) 1 % (0-10); EOSINOPHILS % (AUTO) 0 % (0-10); HEMATOCRIT 34 % (35-52); HEMOGLOBIN 10.9 g/dL (11.5-16.0); LYMPHOCYTES # (AUTO) 0.6 X 10^3 (1.0-4.0); LYMPHOCYTES % (AUTO) 10 % (12-44); MEAN CORPUSCULAR HEMOGLOBIN 31 pg (25-34); MEAN CORPUSCULAR HGB CONC 32 g/dL (32-36); MEAN CORPUSCULAR VOLUME 94 fL (80-99); MEAN PLATELET VOLUME 9.9 fL (9.0-12.2); MONOCYTES % (AUTO) 17 % (0-12); NEUTROPHILS # (AUTO) 4.3 X 10^3 (1.8-7.8); NEUTROPHILS % (AUTO) 72 % (42-75); PLATELET COUNT 199 10^3/uL (130-400)
[2021-03-29 15:59] LABS: ALBUMIN 3.3 GM/DL (3.2-4.5); BILIRUBIN,TOTAL 0.3 MG/DL (0.1-1.0); CALCIUM 8.7 MG/DL (8.5-10.1); CREATININE SERUM 0.63 MG/DL (0.60-1.30); TOTAL PROTEIN 5.9 GM/DL (6.4-8.2)
== END 2021-04-16 | disposition home or self-care (01) ==
LOC: ONC 14:11
PROVIDERS: ATTEND Internal Medicine Hematology & Oncology
DX: Z51.11 Encounter for antineoplastic chemotherapy (principal); C20 Malignant neoplasm of rectum; C78.01 Secondary malignant neoplasm of right lung; C79.51 Secondary malignant neoplasm of bone
CPT/HCPCS: 36591; 36593; 77336; 80053; 82378; 83735; 85025; 96367; 96368; 96375; 96411; 96413

== ENCOUNTER 2021-04-05 10:01 | Outpatient (RCR) | payer OTHER ==
[2021-03-08 11:02] LABS: CALCIUM 9.7 MG/DL (8.5-10.1); CREATININE SERUM 0.65 MG/DL (0.60-1.30); POTASSIUM 3.9 MMOL/L (3.6-5.0)
[2021-03-08 11:03] LABS: BASOPHILS % (AUTO) 0 % (0-10); EOSINOPHILS % (AUTO) 0 % (0-10); HEMATOCRIT 38 % (35-52); HEMOGLOBIN 12.4 g/dL (11.5-16.0); LYMPHOCYTES % (AUTO) 7 % (12-44); MEAN CORPUSCULAR HEMOGLOBIN 30 pg (25-34); MEAN CORPUSCULAR HGB CONC 33 g/dL (32-36); MEAN CORPUSCULAR VOLUME 92 fL (80-99); MEAN PLATELET VOLUME 9.7 fL (9.0-12.2); MONOCYTES % (AUTO) 9 % (0-12); NEUTROPHILS % (AUTO) 83 % (42-75); PLATELET COUNT 238 10^3/uL (130-400); WHITE BLOOD COUNT 8.3 10^3/uL (4.3-11.0)
[2021-03-08 11:04] LABS: LYMPHOCYTES # (AUTO) 0.6 X 10^3 (1.0-4.0); MONOCYTES # (AUTO) 0.8 X 10^3 (0.0-1.0); NEUTROPHILS # (AUTO) 6.9 X 10^3 (1.8-7.8)
[2021-03-08 13:12] LABS: BAND NEUTROPHILS 8 %; BASOPHILS % (MANUAL) 0 %; EOSINOPHILS % (MANUAL) 0 %; LYMPHOCYTES % (MANUAL) 9 %; MONOCYTES % (MANUAL) 12 %; NEUTROPHILS % (MANUAL) 71 %; PLATELET ESTIMATE NORMAL; RBC MORPH NORMAL
[2021-03-22 10:31] LABS: BASOPHILS % (AUTO) 0 % (0-10); EOSINOPHILS % (AUTO) 1 % (0-10); HEMATOCRIT 42 % (35-52); HEMOGLOBIN 13.7 g/dL (11.5-16.0); LYMPHOCYTES # (AUTO) 0.7 X 10^3 (1.0-4.0); LYMPHOCYTES % (AUTO) 13 % (12-44); MEAN CORPUSCULAR HEMOGLOBIN 30 pg (25-34); MEAN CORPUSCULAR HGB CONC 33 g/dL (32-36); MEAN CORPUSCULAR VOLUME 91 fL (80-99); MEAN PLATELET VOLUME 9.7 fL (9.0-12.2); MONOCYTES % (AUTO) 9 % (0-12); NEUTROPHILS # (AUTO) 4.2 X 10^3 (1.8-7.8); NEUTROPHILS % (AUTO) 76 % (42-75); PLATELET COUNT 253 10^3/uL (130-400); WHITE BLOOD COUNT 5.5 10^3/uL (4.3-11.0)
[2021-03-22 10:32] LABS: MONOCYTES # (AUTO) 0.5 X 10^3 (0.0-1.0)
[2021-03-22 11:19] LABS: CALCIUM 9.7 MG/DL (8.5-10.1); CREATININE SERUM 0.69 MG/DL (0.60-1.30); POTASSIUM 3.6 MMOL/L (3.6-5.0)
[~2021-04-05 10:01] MED LIST changes: -BEVACIZUMAB BVZR IV SCH; -D5W 500 ML IV (CANCER CTR) 500 ML IV SCH; -D5W IV SCH; -FOSAPREPITANT (CANCER CENTER) 150 MG in NS (IVPB) CANCER CENTER ONLY 150 ML IV SCH; -LEUCOVORIN CALCIUM IV SCH; -NS IV SCH; -OXALIPLATIN 100 MG, OXALIPLATIN (GENERIC) 30 MG in D5W 250 ML IVPB (CANCER CTR) 250 ML IV SCH; -fluorouraciL 3,000 MG in NS (IVPB) CANCER CENTER 87.2 ML IV SCH
[2021-04-05 10:59] LABS: HEMATOCRIT 41 % (35-52); HEMOGLOBIN 13.2 g/dL (11.5-16.0); LYMPHOCYTES % (AUTO) 8 % (12-44); MEAN CORPUSCULAR HEMOGLOBIN 30 pg (25-34); MEAN CORPUSCULAR HGB CONC 32 g/dL (32-36); MEAN CORPUSCULAR VOLUME 92 fL (80-99); MEAN PLATELET VOLUME 9.4 fL (9.0-12.2); NEUTROPHILS % (AUTO) 84 % (42-75); PLATELET COUNT 263 10^3/uL (130-400); WHITE BLOOD COUNT 8.7 10^3/uL (4.3-11.0)
[2021-04-05 11:00] LABS: BASOPHILS % (AUTO) 0 % (0-10); EOSINOPHILS % (AUTO) 0 % (0-10); LYMPHOCYTES # (AUTO) 0.7 X 10^3 (1.0-4.0); MONOCYTES # (AUTO) 0.6 X 10^3 (0.0-1.0); MONOCYTES % (AUTO) 7 % (0-12); NEUTROPHILS # (AUTO) 7.3 X 10^3 (1.8-7.8)
[2021-04-05 11:12] LABS: CREATININE SERUM 0.59 MG/DL (0.60-1.30); POTASSIUM 3.8 MMOL/L (3.6-5.0)
[2021-04-05 11:13] LABS: CALCIUM 9.9 MG/DL (8.5-10.1)
== END 2021-04-16 | disposition home or self-care (01) ==
LOC: LAB FS 10:01
PROVIDERS: ATTEND Nurse Practitioner Adult Health
DX: C20 Malignant neoplasm of rectum (principal); C78.01 Secondary malignant neoplasm of right lung; C79.51 Secondary malignant neoplasm of bone
CPT/HCPCS: 36415; 80048; 85007; 85025; 85027

== ENCOUNTER → 2021-04-08 | Outpatient (CLI) | payer OTHER ==
[~2021-04-08] MED LIST changes: +BARIUM SUSPENSION 2.1% (VANILLA SILQ) 450 ML PO ONE; +CATHETER FLUSH 10 ML SYR IV PRN; +HOLD METFORMIN - RECEIVED CONTRAST 20 ML VIAL IV SCH; +IOHEXOL 350 MG/ML 100 ML (OMNIPAQUE 350) VIAL IV ONE; +NS 100 ML (IVPB) BAG IV ONE
--- NOTE | 2021-04-08 12:19 | Diagnostic Imaging Report ---
PROCEDURE: CT chest with contrast, CT abdomen and pelvis with and without contrast. TECHNIQUE: Pre and post intravenous contrast axial imaging of the abdomen and pelvis and post contrast axial imaging of the chest were performed. Auto Exposure Controls were utilized during the CT exam to meet ALARA standards for radiation dose reduction. INDICATION: Rectal cancer COMPARISON with CT chest, abdomen and pelvis dated 01/07/2021 and correlated with metabolic PET CT 11/03/2020. FINDINGS: CHEST: The majority of the pulmonary nodules have either completely resolved or markedly regressed. The largest residual nodule in the right lower lobe is 5.8 mm, previously 10 mm. A few 2 to 3 mm subpleural nodular foci are unchanged, those likely benign granulomata. The favorable changes are believed to reflect significant regression in pulmonary parenchymal metastases. No pathological-appearing thoracic lymph nodes. The axillae unremarkable. There is no pleural or pericardial effusion. No suspicious chest wall lesion. ABDOMEN / PELVIS: Presacral and pre-coccygeal soft tissue thickening has decreased, maximal AP dimension of the tissue is 1.7 cm today, previously 2.5 cm. Mottled irregular lucencies in the lower sacrum and upper coccygeal segments, unchanged. A right paramedian vertical sacral fracture traverses the S2 and S3 sacral foramen and passes medial to the S1 segment. There is stable alignment presumed pathologic, its unchanged. No new bony pelvic abnormality. No liver mass. The spleen, adrenals and pancreas unremarkable. No acute biliary pathology. The urinary tracts unobstructed. There is knight colonic constipation without focal impaction or obstruction. Small bowel is nondilated. No pneumatosis or free air. There is no ascites. No suspect omental infiltration. Urinary bladder and urinary tracts unremarkable. IMPRESSION: CHEST: Improvements in pulmonary metastatic disease with no adverse development in the chest. ABDOMEN: Stable negative liver with no abdominal adenopathy. Colonic constipation without obstruction present. PELVIS: Nondisplaced right paramedian sacral zone 1 and zone 2 fracture nondisplaced presumed pathologic with regression of presacral soft tissue thickening and no adverse development. Dictated by: Dictated on workstation # [id number]
--- NOTE | 2021-04-08 18:38 | Diagnostic Imaging Report ---
EXAM: Nuclear medicine whole body bone scan. DATE: April 08, 2021. INDICATION: 65-year-old female, history of rectal malignancy. Evaluation for bone metastasis. COMPARISON: Nuclear medicine whole body bone scan January 07, 2021. CT chest, abdomen and pelvis April 08, 2021. CT chest, abdomen and pelvis January 07, 2021. FINDINGS: 24.5 mCi of technetium labeled MDP with was administered. Delayed subsequent whole-body bone scan images were subsequently obtained. There is radiotracer uptake in the sacrum. There is note of a sacral fracture on same day CT imaging as well as areas of cortical bone loss and abnormal lucency within the sacrum and coccyx. There is no additional identified area of abnormal radiotracer activity. IMPRESSION: Radiotracer uptake in the sacrum which likely relates to the sacral fracture seen on same day CT imaging. There is also bone destruction at the level of the sacrum and coccyx and adjacent abnormal soft tissue attenuation. This does raise concern for a metastatic lesion at the level of the sacrum and coccyx. Report was faxed to the [facility] at 6:37 p.m., by soraya. Dictated by: Dictated on workstation # [id number]
== END ==
LOC: CARD 11:00
PROVIDERS: ATTEND Internal Medicine Hematology & Oncology
DX: C20 Malignant neoplasm of rectum (principal); C78.01 Secondary malignant neoplasm of right lung; C79.51 Secondary malignant neoplasm of bone
CPT/HCPCS: 71260; 74178; 78306

== ENCOUNTER 2021-04-20 13:01 | Outpatient (RCR) | payer OTHER ==
[~2021-04-20] VITALS: Ht 167.6 cm; Wt 50.8 kg
[~2021-04-20 13:01] MED LIST changes: -BARIUM SUSPENSION 2.1% (VANILLA SILQ) 450 ML PO ONE; +BEVACIZUMAB BVZR IV SCH; -CATHETER FLUSH 10 ML SYR IV PRN; +D5W 500 ML IV (CANCER CTR) 500 ML IV SCH; +D5W IV SCH; +FOSAPREPITANT (CANCER CENTER) 150 MG in NS (IVPB) CANCER CENTER ONLY 150 ML IV SCH; -HOLD METFORMIN - RECEIVED CONTRAST 20 ML VIAL IV SCH; -IOHEXOL 350 MG/ML 100 ML (OMNIPAQUE 350) VIAL IV ONE; +LEUCOVORIN CALCIUM IV SCH; -NS 100 ML (IVPB) BAG IV ONE; +NS IV SCH; +OXALIPLATIN 100 MG, OXALIPLATIN (GENERIC) 30 MG in D5W 250 ML IVPB (CANCER CTR) 250 ML IV SCH; +fluorouraciL 3,000 MG in NS (IVPB) CANCER CENTER 87.2 ML IV SCH
[2021-04-20 13:28] LABS: BASOPHILS % (AUTO) 1 % (0-10); EOSINOPHILS % (AUTO) 1 % (0-10); HEMATOCRIT 37 % (35-52); HEMOGLOBIN 11.8 g/dL (11.5-16.0); LYMPHOCYTES # (AUTO) 0.6 10^3/uL (1.0-4.0); LYMPHOCYTES % (AUTO) 22 % (12-44); MEAN CORPUSCULAR HEMOGLOBIN 31 pg (25-34); MEAN CORPUSCULAR HGB CONC 32 g/dL (32-36); MEAN CORPUSCULAR VOLUME 96 fL (80-99); MEAN PLATELET VOLUME 10.1 fL (9.0-12.2); MONOCYTES # (AUTO) 0.6 10^3/uL (0.0-1.0); MONOCYTES % (AUTO) 20 % (0-12); NEUTROPHILS # (AUTO) 1.7 10^3/uL (1.8-7.8); NEUTROPHILS % (AUTO) 57 % (42-75); PLATELET COUNT 232 10^3/uL (130-400); WHITE BLOOD COUNT 2.9 10^3/uL (4.3-11.0)
[2021-04-20 13:56] LABS: ALBUMIN 3.7 GM/DL (3.2-4.5); BILIRUBIN,TOTAL 0.5 MG/DL (0.1-1.0); CALCIUM 9.2 MG/DL (8.5-10.1); CREATININE SERUM 0.62 MG/DL (0.60-1.30); MAGNESIUM 2.1 MG/DL (1.6-2.4); POTASSIUM 4.1 MMOL/L (3.6-5.0); TOTAL PROTEIN 6.4 GM/DL (6.4-8.2)
[2021-04-20] MEDS ORDERED: methylPREDNISolone 125 MG/2 ML (SOLU-MEDROL) CANCER CTR ONE (15:22)
[2021-04-20] MEDS ORDERED: diphenhydrAMINE 50 MG/ML INJ (CANCER CENTER) ONE (15:22)
== END 2021-05-17 | disposition home or self-care (01) ==
LOC: ONC 13:01
PROVIDERS: ATTEND Internal Medicine Hematology & Oncology
DX: Z51.11 Encounter for antineoplastic chemotherapy (principal); C20 Malignant neoplasm of rectum; C78.01 Secondary malignant neoplasm of right lung; C79.51 Secondary malignant neoplasm of bone
CPT/HCPCS: 36591; 80053; 82378; 83735; 85025; 96367; 96368; 96374; 96375; 96411; 96413; 99213

== ENCOUNTER 2021-04-26 10:58 | Outpatient (RCR) | payer OTHER ==
[~2021-04-26 10:58] MED LIST changes: -BEVACIZUMAB BVZR IV SCH; -D5W 500 ML IV (CANCER CTR) 500 ML IV SCH; -D5W IV SCH; -FOSAPREPITANT (CANCER CENTER) 150 MG in NS (IVPB) CANCER CENTER ONLY 150 ML IV SCH; -LEUCOVORIN CALCIUM IV SCH; -NS IV SCH; -OXALIPLATIN 100 MG, OXALIPLATIN (GENERIC) 30 MG in D5W 250 ML IVPB (CANCER CTR) 250 ML IV SCH; -fluorouraciL 3,000 MG in NS (IVPB) CANCER CENTER 87.2 ML IV SCH
[2021-04-26 11:47] LABS: HEMATOCRIT 43 % (35-52); HEMOGLOBIN 13.4 g/dL (11.5-16.0); MEAN CORPUSCULAR HEMOGLOBIN 31 pg (25-34); MEAN CORPUSCULAR HGB CONC 32 g/dL (32-36); MEAN CORPUSCULAR VOLUME 97 fL (80-99); PLATELET COUNT 226 10^3/uL (130-400); WHITE BLOOD COUNT 5.7 10^3/uL (4.3-11.0)
[2021-04-26 11:48] LABS: BASOPHILS % (AUTO) 1 % (0-10); EOSINOPHILS # (AUTO) 0.2 10^3/uL (0.0-0.3); EOSINOPHILS % (AUTO) 3 % (0-10); LYMPHOCYTES # (AUTO) 1.1 X 10^3 (1.0-4.0); LYMPHOCYTES % (AUTO) 19 % (12-44); MEAN PLATELET VOLUME 10.3 fL (9.0-12.2); MONOCYTES # (AUTO) 0.8 X 10^3 (0.0-1.0); MONOCYTES % (AUTO) 14 % (0-12); NEUTROPHILS # (AUTO) 3.6 X 10^3 (1.8-7.8); NEUTROPHILS % (AUTO) 63 % (42-75)
[2021-04-26 11:49] LABS: CALCIUM 9.6 MG/DL (8.5-10.1); CREATININE SERUM 0.58 MG/DL (0.60-1.30); POTASSIUM 4.5 MMOL/L (3.6-5.0)
== END 2021-05-17 | disposition home or self-care (01) ==
LOC: LAB FS 10:58
PROVIDERS: ATTEND Nurse Practitioner Adult Health
DX: C20 Malignant neoplasm of rectum (principal); C78.01 Secondary malignant neoplasm of right lung; C79.51 Secondary malignant neoplasm of bone
CPT/HCPCS: 36415; 80048; 85025

== ENCOUNTER 2021-06-07 11:03 | Outpatient (RCR) | payer OTHER ==
[2021-05-24 11:09] LABS: BASOPHILS % (AUTO) 0 % (0-10); EOSINOPHILS # (AUTO) 0.1 10^3/uL (0.0-0.3); EOSINOPHILS % (AUTO) 2 % (0-10); HEMATOCRIT 44 % (35-52); HEMOGLOBIN 14.1 g/dL (11.5-16.0); LYMPHOCYTES % (AUTO) 17 % (12-44); MEAN CORPUSCULAR HEMOGLOBIN 31 pg (25-34); MEAN CORPUSCULAR HGB CONC 32 g/dL (32-36); MEAN CORPUSCULAR VOLUME 95 fL (80-99); MEAN PLATELET VOLUME 10.1 fL (9.0-12.2); MONOCYTES # (AUTO) 0.5 10^3/uL (0.0-1.0); MONOCYTES % (AUTO) 8 % (0-12); NEUTROPHILS # (AUTO) 4.4 10^3/uL (1.8-7.8); NEUTROPHILS % (AUTO) 72 % (42-75); PLATELET COUNT 182 10^3/uL (130-400); WHITE BLOOD COUNT 6.1 10^3/uL (4.3-11.0)
[2021-05-24 11:51] LABS: CREATININE SERUM 0.61 MG/DL (0.60-1.30); POTASSIUM 4.1 MMOL/L (3.6-5.0)
[2021-05-24 11:52] LABS: CALCIUM 9.4 MG/DL (8.5-10.1)
[2021-06-07 12:09] LABS: BASOPHILS % (AUTO) 1 % (0-10); EOSINOPHILS # (AUTO) 0.1 10^3/uL (0.0-0.3); EOSINOPHILS % (AUTO) 4 % (0-10); HEMATOCRIT 41 % (35-52); HEMOGLOBIN 13.1 g/dL (11.5-16.0); LYMPHOCYTES % (AUTO) 31 % (12-44); MEAN CORPUSCULAR HEMOGLOBIN 31 pg (25-34); MEAN CORPUSCULAR HGB CONC 32 g/dL (32-36); MEAN CORPUSCULAR VOLUME 96 fL (80-99); MEAN PLATELET VOLUME 10.7 fL (9.0-12.2); MONOCYTES # (AUTO) 0.4 10^3/uL (0.0-1.0); MONOCYTES % (AUTO) 14 % (0-12); NEUTROPHILS # (AUTO) 1.5 10^3/uL (1.8-7.8); NEUTROPHILS % (AUTO) 50 % (42-75); PLATELET COUNT 183 10^3/uL (130-400); WHITE BLOOD COUNT 3.1 10^3/uL (4.3-11.0)
[2021-06-07 13:52] LABS: CREATININE SERUM 0.64 MG/DL (0.60-1.30); POTASSIUM 4.1 MMOL/L (3.6-5.0)
[2021-06-07 13:53] LABS: CALCIUM 9.5 MG/DL (8.5-10.1)
== END 2021-06-14 | disposition home or self-care (01) ==
LOC: LAB FS 11:03
PROVIDERS: ATTEND Nurse Practitioner Adult Health
DX: C20 Malignant neoplasm of rectum (principal); C79.51 Secondary malignant neoplasm of bone; C78.01 Secondary malignant neoplasm of right lung
CPT/HCPCS: 36415; 80048; 85025

== ENCOUNTER 2021-07-05 12:01 | Outpatient (RCR) | payer OTHER ==
[2021-06-21 11:51] LABS: CALCIUM 9.3 MG/DL (8.5-10.1); CREATININE SERUM 0.63 MG/DL (0.60-1.30); POTASSIUM 3.9 MMOL/L (3.6-5.0)
[2021-07-05 12:48] LABS: BASOPHILS % (AUTO) 1 % (0-10); EOSINOPHILS % (AUTO) 2 % (0-10); HEMATOCRIT 43 % (35-52); HEMOGLOBIN 14.1 g/dL (11.5-16.0); LYMPHOCYTES % (AUTO) 21 % (12-44); MEAN CORPUSCULAR HEMOGLOBIN 31 pg (25-34); MEAN CORPUSCULAR HGB CONC 33 g/dL (32-36); MEAN CORPUSCULAR VOLUME 95 fL (80-99); MEAN PLATELET VOLUME 9.9 fL (9.0-12.2); MONOCYTES % (AUTO) 10 % (0-12); NEUTROPHILS # (AUTO) 2.2 X 10^3 (1.8-7.8); NEUTROPHILS % (AUTO) 66 % (42-75); PLATELET COUNT 183 10^3/uL (130-400); WHITE BLOOD COUNT 3.3 10^3/uL (4.3-11.0)
[2021-07-05 12:49] LABS: EOSINOPHILS # (AUTO) 0.1 10^3/uL (0.0-0.3); LYMPHOCYTES # (AUTO) 0.7 X 10^3 (1.0-4.0); MONOCYTES # (AUTO) 0.3 X 10^3 (0.0-1.0)
[2021-07-05 12:54] LABS: CALCIUM 9.5 MG/DL (8.5-10.1); CREATININE SERUM 0.57 MG/DL (0.60-1.30); POTASSIUM 3.9 MMOL/L (3.6-5.0)
== END 2021-07-15 | disposition home or self-care (01) ==
LOC: LAB FS 12:01
PROVIDERS: ATTEND Nurse Practitioner Adult Health
DX: Z51.11 Encounter for antineoplastic chemotherapy (principal); C20 Malignant neoplasm of rectum; C79.51 Secondary malignant neoplasm of bone; C78.01 Secondary malignant neoplasm of right lung
CPT/HCPCS: 36415; 80048; 85025

== ENCOUNTER → 2021-07-06 | Outpatient (CLI) | payer OTHER ==
--- NOTE | 2021-07-06 14:50 | Diagnostic Imaging Report ---
INDICATION: Secondary malignant tumor of the right lung. Patient was administered 26.4 mCi technetium 99m MDP intravenously and whole-body imaging was performed after 3 hour delay. Correlation is made with prior whole body bone scan from 04/08/2021. There is normal uptake of activity by the axial and appendicular skeleton. This uptake by the kidneys with excretion into the urinary bladder. There continues to be some mild activity in the midline of the sacrum, similar to a prior bone scan. No new foci of tracer accumulation is seen. IMPRESSION: Stable whole body bone scan when compared to exam from 04/08/2021. Dictated by: Dictated on workstation # [id number]
== END ==
LOC: CARD 11:00
PROVIDERS: ATTEND Nurse Practitioner Adult Health
DX: C80.1 Malignant (primary) neoplasm, unspecified (principal); C78.01 Secondary malignant neoplasm of right lung; C79.51 Secondary malignant neoplasm of bone
CPT/HCPCS: 78306

== ENCOUNTER → 2021-10-01 | Outpatient (CLI) | payer OTHER ==
--- NOTE | 2021-10-01 15:36 | Diagnostic Imaging Report ---
INDICATION: Rectal cancer. Patient was administered 26.0 mCi technetium 99m MDP intravenously and whole-body imaging was performed after 3 hour delay. Correlation is made with prior whole body bone scan from 07/06/2021. The uptake previously noted midline sacrum appears to be stable. Remainder of the bone scan is unremarkable. No new foci of trace accumulation is seen. There is normal physiologic activity present. There is uptake in the kidneys with excretion to urinary bladder. IMPRESSION: Stable whole body bone scan since exam from 07/06/2021. Dictated by: Dictated on workstation # [id number]
== END ==
LOC: CARD 11:00
PROVIDERS: ATTEND Internal Medicine Hematology & Oncology
DX: C20 Malignant neoplasm of rectum (principal); C79.51 Secondary malignant neoplasm of bone; C78.01 Secondary malignant neoplasm of right lung
CPT/HCPCS: 78306

== ENCOUNTER → 2021-12-24 | Outpatient (CLI) | payer OTHER ==
--- NOTE | 2021-12-24 15:43 | Diagnostic Imaging Report ---
Exam: Nuclear medicine whole body bone scan. Date: December 25, 20192021. Indication: 66-year-old female, history of rectal cancer. Evaluation for bone metastasis. Comparison: Nuclear medicine whole body bone scan October 01, 2021. CT chest, abdomen and pelvis April 08, 2021. Nuclear medicine bone scan April 08, 2021. Findings: 24.7 mCi of technetium labeled MDP was administered. 3-hour delayed whole body bone scan images were subsequently obtained. There is radiotracer uptake at the level of the sacrum which appears essentially unchanged since comparison study. Impression: 1. Radiotracer uptake at the level of the sacrum which is grossly unchanged since comparison bone scan and relates to sequela of metastatic disease and pathologic fracture at this location correlating with prior imaging. 2. No new radiotracer avid lesion is identified. Dictated by: Dictated on workstation # [id number]
== END ==
LOC: CARD 11:07
PROVIDERS: ATTEND Nurse Practitioner Adult Health
DX: C20 Malignant neoplasm of rectum (principal); C79.51 Secondary malignant neoplasm of bone; C78.01 Secondary malignant neoplasm of right lung; Z85.528 Personal history of other malignant neoplasm of kidney
CPT/HCPCS: 78306

== ENCOUNTER 2022-01-10 11:48 | Emergency (ER) | payer OTHER ==
[~2022-01-10] VITALS: Ht 167.7 cm; Wt 49.0 kg
[2022-01-10] MEDS ORDERED: cefTRIAXone 1 GM PRE-MIX 50 ML IV STA (13:47)
[2022-01-10] MEDS ORDERED: KETOROLAC 30 MG/ML VIAL IVP STA (13:47)
[2022-01-10] MEDS ORDERED: PHENAZOPYRIDINE 100 MG (PYRIDIUM) TABLET PO STA (13:47)
--- NOTE | 2022-01-10 13:56 | ED GU-Female ---
General Chief Complaint: - Reproductive Stated Complaint: UNABLE TO URINATE Nursing Triage Note: PT AMB TO TRIAGE W C/O INABILITY TO URINATE SX 01/05/22, PT STATES "I GO TO THE BATHROOM AND GET ONE OR TWO DROPS OUT AND THAT'S IT." PT WAS AT DR. SHERMAN OFFICE GETTING IV FLUIDS PRIOR TO CHEMO TX FOR RECTAL CA WHEN HE ADVISED PT TO COME TO ED FOR FURTHER EVALUATION AND TX. PT DID NOT RECEIVE CHEMO TODAY. PT REPORTS DR. SHERMAN OFFICE CALLED DR. COLBERT WHO IS UNABLE TO SEE PT IN OFFICE UNTIL 01/12/22. PT C/O SUPRAPUBIC PAIN, A&OX4. PT HAS RIGHT CHEST PORT ACCESSED UPON ARRIVAL TO ED. Source: patient Exam Limitations: no limitations History of Present Illness Date Seen by Provider: Jan 10, 2022 Time Seen by Provider: 13:40 Initial Comments Here with several days of difficulty with urination, frequency of urination, urinating small amounts and dysuria. Denies fever chills. Denies nausea or vomiting. She is currently on chemotherapy for rectal cancer and does that every Monday. She was due to get that today but they have held that for right now given concerns for urinary tract infection. She did have labs and UA drawn at the cancer clinic which does show nitrite positive urinary tract infection without elevated white count and normal creatinine. Timing/Duration: week, getting worse Severity/Quality: moderate, burning Location: urethral Radiation: urethral Activities at Onset: none Modifying Factors: Worsens With Urinating Associated Symptoms: dysuria; No fever/chills, No nausea/vomiting; urinary frequency Allergies and Home Medications Allergies Coded Allergies: oxaliplatin (Verified Allergy, Intermediate, 04/20/21) RASH Patient Home Medication List Home Medication List Reviewed: Yes Gabapentin (Gabapentin) Unknown Strength Capsule, 300 PO BID, (Reported) Entered as Reported by: BLESSING SCHAEFER on 11/06/20 140 Hydrocodone/Acetaminophen (Hydrocodone-Acetamin 10-325 mg) 1 Each Tablet, 1 EACH PO Q4H, (Reported) Entered as Reported by: BLESSING SCHAEFER on 11/06/201408 Morphine Sulfate (Morphine Sulfate ER) 15 Mg Tablet.er, 15 MG PO BID, (Reported) Entered as Reported by: BLESSING SCHAEFER on 11/06/201408 Sennosides/Docusate Sodium (Sennosides-Docusate Sodium Tab) 1 Each Tablet, 2 EACH PO BID, (Reported) Entered as Reported by: BLESSING SCHAEFER on 11/06/20 5783 Review of Systems Review of Systems Constitutional: No chills, No fever Respiratory: no symptoms reported Cardiovascular: no symptoms reported Gastrointestinal: No abdominal pain, No nausea, No vomiting Genitourinary: see HPI Musculoskeletal: No back pain, No muscle pain Past Xbqoker-Joarxy-Lgvlrj Hx Patient Social History Tobacco Use?: Yes Tobacco type used: Cigarettes Smoking Status: Current Everyday Smoker Use of E-Cig and/or Vaping dev: No Substance use?: Yes Substance type: Marijuana Alcohol Use?: No Immunizations Up To Date Influenza Vaccine Up-to-Date: No; Not Current First/Initial COVID19 Vaccinat: 2020 Second COVID19 Vaccination Per: NONE Third COVID19 Vaccination Date: NONE COVID19 Vaccine [employer]: [employer] Seasonal Allergies Seasonal Allergies: No Past Medical History Surgeries: Yes (COLONOSCOPY, CSECTION) Respiratory: No Currently Using CPAP: No Currently Using BIPAP: No Cardiac: No Neurological: No Female Reproductive Disorders: Denies HIV/AIDS: No Genitourinary: No Gastrointestinal: No Endocrine: No HEENT: No (GLASSES) Colon What Type of Treatment Did You: Surgical Intervention Psychosocial: No Integumentary: No Blood Disorders: No Family Medical History Reviewed Nursing Family Hx Physical Exam Vital Signs Vital Signs - First Documented 01/10/22 12:09 Temp 37.3 Pulse 82 Resp 20 B/P (MAP) 131/72 (91) Pulse Ox 93 O2 Delivery Room Air Capillary Refill : Less Than 3 Seconds Height, Weight, BMI Height: '" Weight: lbs. oz. kg; 17.00 BMI Method: General Appearance: WD/WN, no apparent distress Cardiovascular: regular rate, rhythm, no murmur Respiratory: lungs clear, normal breath sounds Gastrointestinal: non tender, soft Neurologic/Psychiatric: alert, oriented x 3 Skin: normal color, warm/dry Progress/Results/Core Measures Suspected Sepsis SIRS Temperature: Pulse: 82 Respiratory Rate: 20 Blood Pressure 131 /72 Mean: 91 Results/Orders My Orders Orders - MERARY NICOLAS MD Ketorolac Injection (Toradol Injection) (01/10/22 13:47) Phenazopyridine Tablet (Pyridium Tablet) (01/10/22 13:47) Ed Iv/Invasive Line Start (01/10/22 13:47) Ns Iv 500 Ml (Sodium Chloride 0.9%) (01/10/22 14:00) Ceftriaxone 1 Gm Pre-Mix (Rocephin 1 Gm (01/10/22 13:47) Urine Culture (01/10/22 13:47) Medications Given in ED Current Medications Medications Dose Ordered Sig/Evin Route Start Time Stop Time Status Last Admin Dose Admin Sodium Chloride 500 ml @ 0 mls/hr Q0M ONCE IV 01/10/22 14:00 01/10/22 14:01 DC 01/10/22 14:02 999 MLS/HR Vital Signs/I&O 01/10/22 12:09 Temp 37.3 Pulse 82 Resp 20 B/P (MAP) 131/72 (91) Pulse Ox 93 O2 Delivery Room Air Capillary Refill : Less Than 3 Seconds Blood Pressure Mean: 91 Progress Note : Progress Note Seen and evaluated. Patient arrives with port accessed. We will go ahead and give normal saline 500 mL bolus and initiate Rocephin 1 g IV given her history of chemotherapy and nitrite positive findings on outside lab. I will send urine for culture that has already been collected. She is not appearing septic and laboratory findings do not suggest sepsis so we will initiate this treatment here and continue outpatient treatment. Sirisha 100 mg p.o. and Toradol 30 mg IV for pain ordered. Monitor patient. 1528: Overall much improved. She will follow-up with Dr. Colbert's office on Monday. Discharged home with return precautions. Patient verbalized understanding instructions and agreement with plan. Departure Impression Primary Impression: Urinary tract infection Qualified Codes: N30.00 - Acute cystitis without hematuria Disposition: HOME, SELF-CARE Condition: Improved Departure-Patient Inst. Decision time for Depature: 15:50 Referrals: HIGINIO ANDRADE MD (PCP/Family) Primary Care Physician ABIODUN COLBERT MD Patient Instructions: Urinary Tract Infection, Adult (DC) Add. Discharge Instructions: All discharge instructions reviewed with patient and/or family. Voiced understanding. Take medications as directed. Follow-up with your doctor as scheduled on Monday with Dr. Colbert. Return for worse pain, fever, vomiting, weakness, breathing problems or other concerns as needed. Scripts Cephalexin (Cephalexin) 500 Mg Capsule 500 MG PO BID for 5 Days, #10 CAP 0 Refills Prov: MERARY NICOLAS MD 01/10/22 MERARY NICOLAS MD Jan 10, 2022 13:56
[2022-01-10] MEDS ORDERED: NS IV 500 ML 500 ML IV ONE (14:00)
[2022-01-10] MEDS ORDERED: CEPH500C PO (15:51)
[2022-01-10 16:04] VITALS: BP 131/72
== END 2022-01-10 16:06 | disposition home or self-care (01) ==
LOC: EDUNIT# 11:48 → ER 11:49
DX: N39.0 Urinary tract infection, site not specified (principal); C20 Malignant neoplasm of rectum; F17.210 Nicotine dependence, cigarettes, uncomplicated; Z28.311 Partially vaccinated for COVID-19; Z79.899 Other long term (current) drug therapy
CPT/HCPCS: 87077; 87088; 87186; 99283

== ENCOUNTER 2022-03-10 18:30 | Emergency (ER) | payer OTHER ==
[~2022-03-10 18:30] MED LIST changes: +CEPH500C PO
[2022-03-10] MEDS ORDERED: LACTATED RINGERS 1,000 ML IV STA ×3 (19:16→23:23)
[2022-03-10] MEDS ORDERED: HYDROmorphone 2 MG/ML VIAL (DILAUDID) IV STA ×2 (19:16→22:14)
[2022-03-10 19:21] LABS: BASOPHILS % (AUTO) 0 % (0-10); EOSINOPHILS % (AUTO) 0 % (0-10); HEMATOCRIT 31 % (35-52); HEMOGLOBIN 10.1 g/dL (11.5-16.0); LYMPHOCYTES # (AUTO) 0.5 10^3/uL (1.0-4.0); LYMPHOCYTES % (AUTO) 3 % (12-44); MEAN CORPUSCULAR HEMOGLOBIN 29 pg (25-34); MEAN CORPUSCULAR HGB CONC 33 g/dL (32-36); MEAN CORPUSCULAR VOLUME 88 fL (80-99); MEAN PLATELET VOLUME 8.9 fL (9.0-12.2); MONOCYTES # (AUTO) 1.7 10^3/uL (0.0-1.0); MONOCYTES % (AUTO) 10 % (0-12); NEUTROPHILS # (AUTO) 14.8 10^3/uL (1.8-7.8); NEUTROPHILS % (AUTO) 86 % (42-75); PLATELET COUNT 491 10^3/uL (130-400); WHITE BLOOD COUNT 17.3 10^3/uL (4.3-11.0)
[2022-03-10] MEDS: NS IV 1000 ML 1,000 ML IV STA ×2 (19:28→19:29)
--- NOTE | 2022-03-10 19:37 | ED General ---
General Chief Complaint: Skin/Wound Problems Stated Complaint: COLON CA, WEAKNESS, DIARRHEA Nursing Triage Note: COCCYX ABSCESS WITH DIARRHEA, FEVER, AND DEHYDRATION X 4 DAYS. Source of Information: Patient, EMS, Family History of Present Illness Date Seen by Provider: Mar 10, 2022 Time Seen by Provider: 18:48 Initial Comments 66-year-old female presenting by EMS from home with complaints of generalized weakness, feeling dehydrated, diarrhea x4 days, pain and swelling around coccyx. She does have a history of rectal cancer. She states that she has chronic pain in the area of her coccyx and then takes hydrocodone and extended release morphine for that. She follows with Dr. Boswell from Oncology. She states she is taking chemotherapy for the rectal cancer. she denies any recent antibiotics. When her sisted helped her to the bathroom this evening she felt the area on her coccyx looked different so along with that and feeling too weak to get up they called EMS to bring her to the ED. Timing/Duration: 4-5 Days Severity: Severe Associated Systoms: No Chest Pain, No Cough, No Diaphoresis; Fever/Chills; No Headaches; Malaise; No Nausea/Vomiting, No Seizure, No Shortness of Air, No Syncope; Weakness Allergies and Home Medications Allergies Coded Allergies: oxaliplatin (Verified Allergy, Intermediate, 04/20/21) RASH Patient Home Medication List Home Medication List Reviewed: Yes Cephalexin (Cephalexin) 500 Mg Capsule, 500 MG PO BID Prescribed by: MERARY NICOLAS on 01/10/22 1551 Gabapentin (Gabapentin) Unknown Strength Capsule, 300 PO BID, (Reported) Entered as Reported by: BLESSING SCHAEFER on 11/06/20 140 Hydrocodone/Acetaminophen (Hydrocodone-Acetamin 10-325 mg) 1 Each Tablet, 1 EACH PO Q4H, (Reported) Entered as Reported by: BLESSING SCHAEEFR on 11/06/20 140 Morphine Sulfate (Morphine Sulfate ER) 15 Mg Tablet.er, 15 MG PO BID, (Reported) Entered as Reported by: BLESSING SCHAEFER on 11/06/201408 Sennosides/Docusate Sodium (Sennosides-Docusate Sodium Tab) 1 Each Tablet, 2 EACH PO BID, (Reported) Entered as Reported by: BLESSING SCHAEFER on 11/06/20 140 Review of Systems Review of Systems Constitutional: see HPI EENTM: no symptoms reported Respiratory: no symptoms reported Cardiovascular: no symptoms reported Gastrointestinal: see HPI Genitourinary: decreased output Musculoskeletal: no symptoms reported Skin: change in color (pale area with erythema to coccyx) Psychiatric/Neurological: Weakness Past Edbtsvg-Dhbmur-Roxznm Hx Patient Social History Tobacco Use?: Yes Tobacco type used: Cigarettes Use of E-Cig and/or Vaping dev: No Substance use?: Yes Substance type: Marijuana Alcohol Use?: Unable to obtain Immunizations Up To Date First/Initial COVID19 Vaccinat: 2020 Second COVID19 Vaccination Per: NONE Third COVID19 Vaccination Date: NONE Seasonal Allergies Seasonal Allergies: No Past Medical History Surgery/Hospitalization HX: Rectal Cancer Surgeries: Yes (COLONOSCOPY, CSECTION) Respiratory: No Currently Using CPAP: No Currently Using BIPAP: No Cardiac: No Neurological: No Female Reproductive Disorders: Denies HIV/AIDS: No Genitourinary: No Gastrointestinal: No Endocrine: No HEENT: No (GLASSES) Cancer: Yes Rectal, Colon What Type of Treatment Did You: Chemotherapy, Surgical Intervention Psychosocial: No Integumentary: No Blood Disorders: No Physical Exam Vital Signs Vital Signs - First Documented 03/10/22 18:52 Temp 36.6 Pulse 97 Resp 18 B/P (MAP) 131/103 (112) Pulse Ox 100 O2 Delivery Room Air Capillary Refill : Less Than 3 Seconds Height, Weight, BMI Height: '" Weight: lbs. oz. kg; 17.00 BMI Method: General Appearance: Chronically ill, Cachetic, Mild Distress (complaint of rectal pain and diarrhea that she can not control) HEENT: PERRL/EOMI; No Moist Mucous Membranes (slightly dry mucous membranes) Neck: Full Range of Motion, Normal Inspection, Non Tender, Supple Respiratory: Chest Non Tender, Lungs Clear, Normal Breath Sounds Cardiovascular: Regular Rate, Rhythm, Normal Peripheral Pulses Gastrointestinal: Normal Bowel Sounds, No Pulsatile Mass, Non Tender, Soft Rectal: Deferred Extremity: Normal Capillary Refill, Normal Inspection, No Pedal Edema Neurologic/Psychiatric: Alert, Oriented x3 Skin: Warm/Dry, Erythema (coccyx and perirectal from where she has been having diarrhea) Focused Exam Sepsis Stage: Sepsis Possible Source: Skin/Soft Tissue Lactate Level 03/10/22 18:40: Lactic Acid Level 2.35*H 03/10/22 20:40: Lactic Acid Level 1.89 Time of Focused Exam: 21:00 Respiratory: Chest Non Tender, Lungs Clear, Normal Breath Sounds, No Accessory Muscle Use, No Respiratory Distress Cardiovascular: Normal Peripheral Pulses, Tachycardia Capillary Refill: Less Than 3 Seconds Peripheral Pulses: 2+ Carotid (R), 2+ Carotid (L), 2+ Radial Pulses (R), 2+ Radial Pulses (L) Skin: normal color, warm/dry Lactic Acid Level Laboratory Tests Test 03/10/22 18:40 03/10/22 20:40 Lactic Acid Level 2.35 MMOL/L (0.50-2.00) *H 1.89 MMOL/L (0.50-2.00) Within 3hrs of presentation: Admin fluids, Admin ABX, Blood cultures prior to ABX's, Focus exam, Lactate level Progress/Results/Core Measures Suspected Sepsis SIRS Temperature: Pulse: 97 Respiratory Rate: 18 Laboratory Tests 03/10/22 18:40: White Blood Count 17.3H Blood Pressure 131 /103 Mean: 112 03/10/22 18:40: Lactic Acid Level 2.35*H 03/10/22 20:40: Lactic Acid Level 1.89 Laboratory Tests 03/10/22 18:40: Creatinine 0.64, Platelet Count 491H, Total Bilirubin 0.4 Results/Orders Lab Results Laboratory Tests Test 03/10/22 18:40 03/10/22 20:40 03/10/22 20:43 Range/Units White Blood Count 17.3 H 4.3-11.0 10^3/uL Red Blood Count 3.46 L 3.80-5.11 10^6/uL Hemoglobin 10.1 L 11.5-16.0 g/dL Hematocrit 31 L 35-52 % Mean Corpuscular Volume 88 80-99 fL Mean Corpuscular Hemoglobin 29 25-34 pg Mean Corpuscular Hemoglobin Concent 33 32-36 g/dL Red Cell Distribution Width 15.3 H 10.0-14.5 % Platelet Count 491 H 130-400 10^3/uL Mean Platelet Volume 8.9 L 9.0-12.2 fL Immature Granulocyte % (Auto) 1 % Neutrophils (%) (Auto) 86 H 42-75 % Lymphocytes (%) (Auto) 3 L 12-44 % Monocytes (%) (Auto) 10 0-12 % Eosinophils (%) (Auto) 0 0-10 % Basophils (%) (Auto) 0 0-10 % Neutrophils # (Auto) 14.8 H 1.8-7.8 10^3/uL Lymphocytes # (Auto) 0.5 L 1.0-4.0 10^3/uL Monocytes # (Auto) 1.7 H 0.0-1.0 10^3/uL Eosinophils # (Auto) 0.0 0.0-0.3 10^3/uL Basophils # (Auto) 0.0 0.0-0.1 10^3/uL Immature Granulocyte # (Auto) 0.2 H 0.0-0.1 10^3/uL Neutrophils % (Manual) 62 % Lymphocytes % (Manual) 1 % Monocytes % (Manual) 7 % Metamyelocytes % 2 % Band Neutrophils 26 % Reactive Lymphocytes 2 % Platelet Estimate INCREASED Polychromasia SLIGHT Anisocytosis SLIGHT Blood Morphology Comment NORMAL Sodium Level 127 L 135-145 MMOL/L Potassium Level 4.5 3.6-5.0 MMOL/L Chloride Level 88 L 98-107 MMOL/L Carbon Dioxide Level 25 21-32 MMOL/L Anion Gap 14 5-14 MMOL/L Blood Urea Nitrogen 22 H 7-18 MG/DL Creatinine 0.64 0.60-1.30 MG/DL Estimat Glomerular Filtration Rate 99 BUN/Creatinine Ratio 34 Glucose Level 108 H 70-105 MG/DL Lactic Acid Level 2.35 *H 1.89 0.50-2.00 MMOL/L Calcium Level 9.1 8.5-10.1 MG/DL Corrected Calcium 10.4 H 8.5-10.1 MG/DL Magnesium Level 2.1 1.6-2.4 MG/DL Total Bilirubin 0.4 0.1-1.0 MG/DL Aspartate Amino Transf (AST/SGOT) 67 H 5-34 U/L Alanine Aminotransferase (ALT/SGPT) 60 H 0-55 U/L Alkaline Phosphatase 349 H 40-136 U/L C-Reactive Protein 31.99 H <0.50 MG/DL Total Protein 6.6 6.4-8.2 GM/DL Albumin 2.4 L 3.2-4.5 GM/DL Urine Color YELLOW Urine Clarity TURBID Urine pH 6.5 5-9 Urine Specific [place] 1.010 L 1.016-1.022 Urine Protein 1+ H NEGATIVE Urine Glucose (UA) NEGATIVE NEGATIVE Urine Ketones NEGATIVE NEGATIVE Urine Nitrite NEGATIVE NEGATIVE Urine Bilirubin NEGATIVE NEGATIVE Urine Urobilinogen 1.0 < = 1.0 MG/DL Urine Leukocyte Esterase 3+ H NEGATIVE Urine RBC (Auto) 2+ H NEGATIVE Urine RBC 2-5 H /HPF Urine WBC TNTC H /HPF Urine Squamous Epithelial Cells NONE /HPF Urine Crystals NONE /LPF Urine Bacteria LARGE H /HPF Urine Casts NONE /LPF Urine Mucus NEGATIVE /LPF Urine Culture Indicated YES My Orders Orders - CLARENCE MCCABE MD Cbc With Automated Diff (03/10/22 19:05) Comprehensive Metabolic Panel (03/10/22 19:05) Blood Culture (03/10/22 19:05) Ua Culture If Indicated (03/10/22 19:05) Ed Iv/Invasive Line Start (03/10/22 19:05) Crp Fs (03/10/22 19:05) Lactic Acid Analyzer (03/10/22 19:05) Ns Iv 1000 Ml (Sodium Chloride 0.9%) (03/10/22 19:05) Magnesium (03/10/22 19:05) Hydromorphone Injection (Dilaudid Inject (03/10/22 19:16) Lactated Ringers (Lr 1000 Ml Iv Solution (03/10/22 19:16) Manual Differential (03/10/22 18:40) Iohexol Injection (Omnipaque 350 Mg/Ml 1 (03/10/22 20:00) Received Contrast (Hold Metformin- Contr (03/10/22 20:00) Sodium Chloride Flush (Catheter Flush Sy (03/10/22 20:00) Ns (Ivpb) (Sodium Chloride 0.9% Ivpb Bag (03/10/22 20:00) Straight Cath For Spec.-Adult (03/10/22 20:23) Ceftriaxone 1 Gm Pre-Mix (Rocephin 1 Gm (03/10/22 20:23) Ct Abdomen/Pelvis W (03/10/22 20:24) Urine Culture (03/10/22 20:43) Metronidazole 500mg/100ml Ivpb (Flagyl 5 (03/10/22 21:36) Hydromorphone Injection (Dilaudid Inject (03/10/22 22:14) Lactated Ringers (Lr 1000 Ml Iv Solution (03/10/22 22:14) Lactated Ringers (Lr 1000 Ml Iv Solution (03/10/22 23:23) Medications Given in ED Current Medications Medications Dose Ordered Sig/Evin Route Start Time Stop Time Status Last Admin Dose Admin Iohexol 75 ml ONCE ONCE IV 03/10/22 20:00 03/10/22 20:01 DC 03/10/22 20:45 75 ML Sodium Chloride 100 ml ONCE ONCE IV 03/10/22 20:00 03/10/22 20:01 DC 03/10/22 20:45 65 ML Vital Signs/I&O 03/10/22 18:52 Temp 36.6 Pulse 97 Resp 18 B/P (MAP) 131/103 (112) Pulse Ox 100 O2 Delivery Room Air 03/11/22 00:00 Intake Total 1150 ml Balance 1150 ml Capillary Refill : Less Than 3 Seconds Blood Pressure Mean: 112 Progress Note #1: Progress Note Check labs and blood cultures as well as lactic acid. Order CT scan of the abdomen pelvis with IV contrast to evaluate for the pain around her rectum and coccyx. Normal saline 1 L IV fluid bolus by EMS and will supplement that with LR 1 L IV fluid bolus for hydration. She has not taken any of her pain medication for 4-5 hours so we will give a dose of Dilaudid 0.5 mg Progress Note #2: Progress Note CBC shows elevated white blood cell count of 17.3 thousand with a left shift. She does have a 26% bandemia. Her lactic acid is elevated to 2.35. She has mild hyponatremia of 127. She has elevated BUN of 22 with normal Cr. Will order Rocephin 1 gm IV for sepsis and get cath UA prior to antibiotic. Give additional Liter of IVF LR 1 Liter bolus for hydration and sepsis. Progress Note #3: Time: 21:15 Progress Note Repeat Lactic acid improved to 1.89 with hydration and Rocephin. UA shows 3+ LE with WBC and Bacteria for UTI. Prior urine culture had E coli that was pansensitive. On my review of her CT scan she has abscess and subcutaneous air in the presacral and posterior sacral area extending into the buttocks. Will check with Dr. Gallego, alarm security or surveillance monitor surgeon, about the scan and if this is something that could be managed locally or if would need Colorectal surgeon. 2118 d/w Dr. Gallego and he will review images and call me back. 2128 Dr. Gallego recommended that the patient go to a larger facility where colorectal surgery and ID would be available. D/w family and updated them on the findings and recommendations of transfer to larger hospital. They requested to check with [facility] in [facility] since Dr. Espinoza her oncologist is there. If not there [facility] would be next closest facility with colorectal surgeon. 2226 d/w MERLY Martinez, from [facility] and they are on diversion and offered to put patient on a wait list. However, they do not have a colorectal surgeon alarm security or surveillance monitor tonight so declined the wait list. 2229 d/w MERLY Gary, from [facility] and gave her basic information on the patient. She advised that [facility] did have beds and coloerectal surgery service. Will send face sheet and cloud images and then they will call back with hospitalist to see if she can go to PCU or floor or with her sepsis if they want her to go to ICU. I added Flagyl on to her antibiotic regimen since it looks like there could be issue with anastamosis of sigmoid colon and rectum but regardless she has perirectal abscess with possible GI contamination. Progress Note #4: Time: 23:15 Progress Note Discussed with Dr. Aguilar, resident physician, working with hospitalist Dr. Marks. He accepted patient on behalf of Dr. Marks. We will continue with IV fluids for her tachycardia and relative hypotension. She did receive Rocephin and Flagyl for antibiotics. They will call back once a bed assignment was available for the patient. 0001 I called the [facility] and spoke with MERLY Poon. She gave a room assignment for the patient and a number for the nurse to call report. Diagnostic Imaging Diagonstic Imaging: CT Plain Films/CT/US/NM/MRI: abdomen, pelvis Comments NAME: LAURA SANTOS [facility] REC#: [id number] PT STATUS: REG ER : 1955 PHYSICIAN: CLARENCE MCCABE MD ADMIT DATE: 03/10/22/ER FS Draft Date of Exam:03/10/22 CT ABDOMEN/PELVIS W PROCEDURE: CT abdomen and pelvis with contrast. TECHNIQUE: Multiple contiguous axial images were obtained through the abdomen and pelvis after administration of intravenous contrast. Auto Exposure Controls were utilized during the CT exam to meet ALARA standards for radiation dose reduction. All CT scans use one or more of the following dose optimizing techniques: automated exposure control, MA and/or KvP adjustment based on patient size and exam type or iterative reconstruction. INDICATION: Rectal pain. FINDINGS: Lung bases are clear. Liver is unremarkable. Spleen is not enlarged. Gallbladder is unremarkable. Pancreas appears normal. Kidneys and adrenals appear normal. There is aortic atherosclerosis. There is a large amount of stool in the colon. Small bowel is not dilated. There is no appendicitis. Urinary bladder is unremarkable. Uterus and adnexa are unremarkable. There is extraperitoneal gas posterior to the sacrum in the soft tissues. There is also extraperitoneal gas anterior to the sacrum that contains an air fluid level. There is suspicion for osteomyelitis of the right side of the sacrum. IMPRESSION: There appears to be an abscess in the presacral space posterior to the rectum that measures 6.7 cm in diameter, 3.6 cm anteroposteriorly and 8 cm vertically. This contains an air-fluid level. There is also gas in the soft tissues posterior to the sacrum that appears to communicate with the presacral abscess. Dictated on workstation # [id number] Dict: 03/10/222048 Trans: 03/10/222106 [facility] [id number] Interpreted by: MERARY MANZANO MD Electronically signed by: Reviewed: Reviewed by Id Critical Care Note Critical Care Total Time (minutes) 60 minutes Progress 60 minutes of critical care time was spent in managing the patient. Time excludes separately billable procedures. Time was spent obtaining history from patient and family members, ordering tests and reviewing results, ordering in terventions and reviewing response, discussion with consultants, discussion with family and patient, documentation in the chart. Patient was at risk of cardiovascular compromise from sepsis and dehydration. She required my sole attention to manage her care and treat her symptoms. 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 Aguilar, resident physician, and he accepted on behalf of Dr. Marks for admit to hospitalist. Admit for perirectal abscess and consult surgery for assistance with care of this. Continue antibiotics for sepsis, UTI, perirectal abscess. Transfer Facility: [facility] Method of Transfer: EMS Departure-Patient Inst. Referrals: HIGINIO ANDRADE MD (PCP/Family) Primary Care Physician CLARENCE MCCABE MD Mar 10, 2022 19:37
[2022-03-10 19:55] LABS: POTASSIUM 4.5 MMOL/L (3.6-5.0)
[2022-03-10 19:56] LABS: ALBUMIN 2.4 GM/DL (3.2-4.5); BILIRUBIN,TOTAL 0.4 MG/DL (0.1-1.0); CALCIUM 9.1 MG/DL (8.5-10.1); CREATININE SERUM 0.64 MG/DL (0.60-1.30); MAGNESIUM 2.1 MG/DL (1.6-2.4); TOTAL PROTEIN 6.6 GM/DL (6.4-8.2)
[2022-03-10] MEDS ORDERED: HOLD METFORMIN - RECEIVED CONTRAST 20 ML VIAL IV SCH (20:00)
[2022-03-10] MEDS ORDERED: CATHETER FLUSH 10 ML SYR IV PRN (20:00)
[2022-03-10] MEDS ORDERED: IOHEXOL 350 MG/ML 100 ML (OMNIPAQUE 350) VIAL IV ONE (20:00)
[2022-03-10] MEDS ORDERED: NS 100 ML (IVPB) BAG IV ONE (20:00)
[2022-03-10 20:02] LABS: ANISOCYTOSIS SLIGHT; BAND NEUTROPHILS 26 %; LYMPHOCYTES % (MANUAL) 1 %; METAMYELOCYTES % 2 %; MONOCYTES % (MANUAL) 7 %; NEUTROPHILS % (MANUAL) 62 %; PLATELET ESTIMATE INCREASED; POLYCHROMASIA SLIGHT; RBC MORPH NORMAL; REACTIVE LYMPHOCYTES 2 %
[2022-03-10] MEDS ORDERED: cefTRIAXone 1 GM PRE-MIX 50 ML IV STA (20:23)
[2022-03-10 21:00] LABS: BILIRUBIN,URINE NEGATIVE (NEGATIVE); CLARITY,URINE TURBID; COLOR,URINE YELLOW; GLUCOSE, URINE (UA) NEGATIVE (NEGATIVE); KETONES,URINE NEGATIVE (NEGATIVE); LEUKOCYTE ESTERASE ,URINE 3+ (NEGATIVE); NITRITE,URINE NEGATIVE (NEGATIVE); PH,URINE 6.5 (5-9); PROTEIN,URINE 1+ (NEGATIVE)
--- NOTE | 2022-03-10 21:08 | Diagnostic Imaging Report ---
PROCEDURE: CT abdomen and pelvis with contrast. TECHNIQUE: Multiple contiguous axial images were obtained through the abdomen and pelvis after administration of intravenous contrast. Auto Exposure Controls were utilized during the CT exam to meet ALARA standards for radiation dose reduction. All CT scans use one or more of the following dose optimizing techniques: automated exposure control, MA and/or KvP adjustment based on patient size and exam type or iterative reconstruction. INDICATION: Rectal pain. FINDINGS: Lung bases are clear. Liver is unremarkable. Spleen is not enlarged. Gallbladder is unremarkable. Pancreas appears normal. Kidneys and adrenals appear normal. There is aortic atherosclerosis. There is a large amount of stool in the colon. Small bowel is not dilated. There is no appendicitis. Urinary bladder is unremarkable. Uterus and adnexa are unremarkable. There is extraperitoneal gas posterior to the sacrum in the soft tissues. There is also extraperitoneal gas anterior to the sacrum that contains an air fluid level. There is suspicion for osteomyelitis of the right side of the sacrum. IMPRESSION: There appears to be an abscess in the presacral space posterior to the rectum that measures 6.7 cm in diameter, 3.6 cm anteroposteriorly and 8 cm vertically. This contains an air-fluid level. There is also gas in the soft tissues posterior to the sacrum that appears to communicate with the presacral abscess. Dictated by: Dictated on workstation # [id number]
[2022-03-10 21:09] LABS: BACTERIA,URINE LARGE /HPF; WBC,URINE TNTC /HPF
[2022-03-10] MEDS ORDERED: metroNIDAZOLE 500MG/100ML IVPB 100 ML IV STA (21:36)
[2022-03-11 00:30] VITALS: BP 95/64
== END 2022-03-11 00:35 | disposition short-term general hospital (02) ==
LOC: ER FS 18:31
DX: A41.9 Sepsis, unspecified organism (principal); N30.91 Cystitis, unspecified with hematuria; K61.1 Rectal abscess; R19.7 Diarrhea, unspecified; C20 Malignant neoplasm of rectum; F17.210 Nicotine dependence, cigarettes, uncomplicated
CPT/HCPCS: 36415; 51701; 74177; 80053; 81000; 83605; 83735; 85007; 85027; 86141; 87040; 87077; 87088

== ENCOUNTER 2022-10-12 18:13 | Emergency (ER) | payer MEDICARE, MEDICAID ==
[2022-10-12 18:15] VITALS: BP 104/68
[2022-10-12] MEDS ORDERED: NS IV 1000 ML 1,000 ML IV STA ×3 (18:29→22:59)
[2022-10-12] MEDS ORDERED: METOCLOPRAMIDE INJ 10 MG/2 ML (REGLAN) IVP STA (18:29)
--- NOTE | 2022-10-12 18:36 | ED General ---
General Chief Complaint: Abdominal/GI Problems Stated Complaint: O2 LOW,BOWEL OBSTRUCTION Source of Information: Patient, Family History of Present Illness Date Seen by Provider: Oct 12, 2022 Time Seen by Provider: 18:16 Initial Comments 67-year-old female presenting with complaints of a few weeks of having nausea and vomiting. She states that it feels like her stomach is always gurgling. 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 She had presented then with an abscess to her buttocks area. She continues to have a slow healing wound in that area and is following with the wound care doctor at [facility]. She had gotten in to the clinic today to be seen for her continued nausea and vomiting and they had performed an x-ray of her chest and abdomen. She also was noted to be low on oxygen at the clinic. The x-ray of her abdomen was read out as a dilated loop of bowel concerning for mid small bowel obstruction. Patient denies feeling short of breath, fever, abdominal pain. She continues to have normal output in her colostomy bag. She also has catheter and a leg bag for urine output. She smokes cigarettes but has been trying to cut down. She has never required oxygen before today. The clinic had recommended she come to the emergency department to be further worked up and have additional testing and then get her transferred back to [facility] rather than have her drive herself up there. Timing/Duration: Getting Worse (over the last 3-4 weeks) Severity: Severe Modifying Factors: worse with Eating Associated Systoms: No Chest Pain, No Cough, No Diaphoresis, No Fever/Chills, No Headaches, No Loss of Appetite; Malaise, Nausea/Vomiting; No Rash, No Seizure, No Shortness of Air, No Syncope; Weakness Allergies and Home Medications Allergies Coded Allergies: oxaliplatin (Verified Allergy, Intermediate, 04/20/21) RASH Patient Home Medication List Home Medication List Reviewed: Yes Cephalexin (Cephalexin) 500 Mg Capsule, 500 MG PO BID Prescribed by: MERARY NICOLAS on 01/10/22 1551 Gabapentin (Gabapentin) Unknown Strength Capsule, 300 PO BID, (Reported) Entered as Reported by: BLESSING SCHAEFER on 11/06/20 1409 Hydrocodone/Acetaminophen (Hydrocodone-Acetamin 10-325 mg) 1 Each Tablet, 1 EACH PO Q4H, (Reported) Entered as Reported by: BLESSING SCHAEFER on 11/06/201408 Morphine Sulfate (Morphine Sulfate ER) 15 Mg Tablet.er, 15 MG PO BID, (Reported) Entered as Reported by: BLESSING SCHAEFER on 11/06/201408 Sennosides/Docusate Sodium (Sennosides-Docusate Sodium Tab) 1 Each Tablet, 2 EACH PO BID, (Reported) Entered as Reported by: BLESSING SCHAEFER on 11/06/201408 Review of Systems Review of Systems Constitutional: see HPI EENTM: No nose congestion Respiratory: see HPI; No cough Cardiovascular: No chest pain Gastrointestinal: No abdominal pain; nausea, vomiting Genitourinary: no symptoms reported Musculoskeletal: no symptoms reported Skin: see HPI (chronic slow healing wound to sacrum) Psychiatric/Neurological: No Symptoms Reported Past Obpbbwj-Hswhox-Dhyrei Hx Patient Social History Tobacco Use?: Yes Tobacco type used: Cigarettes Smoking Status: Current Everyday Smoker Alcohol Use?: No Immunizations Up To Date First/Initial COVID19 Vaccinat: 2020 Second COVID19 Vaccination Per: NONE Third COVID19 Vaccination Date: NONE Seasonal Allergies Seasonal Allergies: No Past Medical History Surgery/Hospitalization HX: Rectal Cancer, Colostomy with bowel resection Surgeries: Yes (COLONOSCOPY, CSECTION) Respiratory: No Currently Using CPAP: No Currently Using BIPAP: No Cardiac: No Neurological: No Female Reproductive Disorders: Denies HIV/AIDS: No Genitourinary: No Gastrointestinal: No Endocrine: No HEENT: No (GLASSES) Cancer: Yes Rectal, Colon What Type of Treatment Did You: Chemotherapy, Surgical Intervention Psychosocial: No Integumentary: No Blood Disorders: No Physical Exam Vital Signs Vital Signs - First Documented 10/12/22 18:15 Temp 35.9 Pulse 102 Resp 13 B/P (MAP) 104/68 (80) Pulse Ox 96 O2 Delivery Nasal Cannula O2 Flow Rate 2.00 Capillary Refill : Height, Weight, BMI Height: '" Weight: lbs. oz. kg; 17.00 BMI Method: General Appearance: No Apparent Distress, Chronically ill, Cachetic HEENT: PERRL/EOMI, Pharynx Normal Respiratory: Chest Non Tender, Lungs Clear, Normal Breath Sounds, No Accessory Muscle Use, No Respiratory Distress Cardiovascular: Regular Rate, Rhythm, Normal Peripheral Pulses Gastrointestinal: Normal Bowel Sounds, No Pulsatile Mass, Non Tender, Soft, Other (normal output in colostomy bag) Rectal: Deferred Extremity: Normal Capillary Refill, Normal Inspection, No Calf Tenderness, No Pedal Edema Neurologic/Psychiatric: Alert, Oriented x3, pipe fitter helper II-XII Norm as Tested Skin: Warm/Dry Progress/Results/Core Measures Suspected Sepsis SIRS Temperature: Pulse: Respiratory Rate: Laboratory Tests 10/12/22 18:30: White Blood Count 12.2H Blood Pressure / Mean: Laboratory Tests 10/12/22 18:30: Creatinine 0.82, Platelet Count 469H, Total Bilirubin 0.7 Results/Orders Lab Results Laboratory Tests Test 10/12/22 18:30 10/12/22 20:00 Range/Units White Blood Count 12.2 H 4.3-11.0 10^3/uL Red Blood Count 4.91 3.80-5.11 10^6/uL Hemoglobin 14.7 11.5-16.0 g/dL Hematocrit 43 35-52 % Mean Corpuscular Volume 88 80-99 fL Mean Corpuscular Hemoglobin 30 25-34 pg Mean Corpuscular Hemoglobin Concent 34 32-36 g/dL Red Cell Distribution Width 15.2 H 10.0-14.5 % Platelet Count 469 H 130-400 10^3/uL Mean Platelet Volume 9.3 9.0-12.2 fL Immature Granulocyte % (Auto) 1 % Neutrophils (%) (Auto) 85 H 42-75 % Lymphocytes (%) (Auto) 6 L 12-44 % Monocytes (%) (Auto) 8 0-12 % Eosinophils (%) (Auto) 0 0-10 % Basophils (%) (Auto) 0 0-10 % Neutrophils # (Auto) 10.3 H 1.8-7.8 10^3/uL Lymphocytes # (Auto) 0.8 L 1.0-4.0 10^3/uL Monocytes # (Auto) 1.0 0.0-1.0 10^3/uL Eosinophils # (Auto) 0.0 0.0-0.3 10^3/uL Basophils # (Auto) 0.0 0.0-0.1 10^3/uL Immature Granulocyte # (Auto) 0.1 0.0-0.1 10^3/uL Neutrophils % (Manual) 73 % Lymphocytes % (Manual) 4 % Monocytes % (Manual) 3 % Eosinophils % (Manual) 1 % Basophils % (Manual) 1 % Metamyelocytes % 1 % Band Neutrophils 11 % Atypical Lymphocytes 3 % Reactive Lymphocytes 3 % Platelet Estimate INCREASED Blood Morphology Comment NORMAL Venous Blood pH 7.71 H 7.31-7.41 Venous Blood Partial Pressure CO2 40 40-52 MMHG Venous Blood HCO3 51 H 22-28 MMOL/L Sodium Level 127 L 135-145 MMOL/L Potassium Level 2.9 L 3.6-5.0 MMOL/L Chloride Level 73 L 98-107 MMOL/L Carbon Dioxide Level 35 H 21-32 MMOL/L Anion Gap 19 H 5-14 MMOL/L Blood Urea Nitrogen 18 7-18 MG/DL Creatinine 0.82 0.60-1.30 MG/DL Estimat Glomerular Filtration Rate 79 BUN/Creatinine Ratio 22 Glucose Level 106 H 70-105 MG/DL Calcium Level 9.6 8.5-10.1 MG/DL Corrected Calcium 10.1 8.5-10.1 MG/DL Magnesium Level 2.2 1.6-2.4 MG/DL Total Bilirubin 0.7 0.1-1.0 MG/DL Aspartate Amino Transf (AST/SGOT) 19 5-34 U/L Alanine Aminotransferase (ALT/SGPT) 11 0-55 U/L Alkaline Phosphatase 121 40-136 U/L Total Protein 6.7 6.4-8.2 GM/DL Albumin 3.4 3.2-4.5 GM/DL Lipase 17 8-78 U/L Urine Color YELLOW Urine Clarity TURBID Urine pH 7.0 5-9 Urine Specific [place]more 1.010 L 1.016-1.022 Urine Protein TRACE H NEGATIVE Urine Glucose (UA) NEGATIVE NEGATIVE Urine Ketones NEGATIVE NEGATIVE Urine Nitrite NEGATIVE NEGATIVE Urine Bilirubin 1+ H NEGATIVE Urine Urobilinogen 0.2 < = 1.0 MG/DL Urine Leukocyte Esterase 1+ H NEGATIVE Urine RBC (Auto) TRACE-I H NEGATIVE Urine RBC 0-2 /HPF Urine WBC 10-25 H /HPF Urine Squamous Epithelial Cells RARE /HPF Urine Renal Epithelial Cells RARE /HPF Urine Crystals NONE /LPF Urine Bacteria LARGE H /HPF Urine Casts PRESENT /LPF Urine Hyaline Casts 10-25 H /LPF Urine Mucus LARGE H /LPF Urine Culture Indicated YES My Orders Orders - CLARENCE MCCABE MD Comprehensive Metabolic Panel (10/12/22 18:29) Lipase (10/12/22 18:29) Ua Culture If Indicated (10/12/22 18:29) Ed Iv/Invasive Line Start (10/12/22 18:29) Cbc With Automated Diff (10/12/22 18:29) Ct Linda Chest/Noang Abd-Pelv W (10/12/22 18:29) Magnesium (10/12/22 18:29) O2 (10/12/22 18:29) Venous Blood Gas (10/12/22 18:29) Ns Iv 1000 Ml (Sodium Chloride 0.9%) (10/12/22 18:29) Metoclopramide Injection (Reglan Injecti (10/12/22 18:29) Manual Differential (10/12/22 18:30) Iohexol Injection (Omnipaque 350 Mg/Ml 1 (10/12/22 20:00) Di Iv Start (Assessment) .IV start (10/12/22 19:58) Received Contrast (Hold Metformin- Contr (10/12/22 20:00) Sodium Chloride Flush (Catheter Flush Sy (10/12/22 20:00) Ns (Ivpb) (Sodium Chloride 0.9% Ivpb Bag (10/12/22 20:00) Urine Culture (10/12/22 20:00) Ns Iv 1000 Ml (Sodium Chloride 0.9%) (10/12/22 20:53) Ns Iv 1000 Ml (Sodium Chloride 0.9%) (10/12/22 22:59) Ns Iv 1000 Ml (Sodium Chloride 0.9%) (10/12/22 22:58) Medications Given in ED Current Medications Medications Dose Ordered Sig/Evin Route Start Time Stop Time Status Last Admin Dose Admin Iohexol 100 ml ONCE ONCE IV 10/12/22 20:00 10/12/22 20:01 DC 10/12/22 20:02 100 ML Sodium Chloride 10 ml NEEDED PRN IV 10/12/22 20:00 10/12/22 20:03 10 ML Sodium Chloride 100 ml ONCE ONCE IV 10/12/22 20:00 10/12/22 20:01 DC 10/12/22 20:03 100 ML Vital Signs/I&O 10/12/22 18:15 Temp 35.9 Pulse 102 Resp 13 B/P (MAP) 104/68 (80) Pulse Ox 96 O2 Delivery Nasal Cannula O2 Flow Rate 2.00 10/13/22 00:00 Intake Total 1000 ml Balance 1000 ml Capillary Refill : Progress Note #1: Progress Note Potential diagnosis of pulmonary embolism, pneumonia, COPD exacerbation, bowel obstruction, colon mass, pancreatitis, electrolyte imbalance. Obtain CT angiogram of the chest and CT abdomen pelvis with IV contrast to help look for pulmonary embolism, mass, obstruction, colitis, diverticulitis. Access for implanted port and send labs for complete blood count, comprehensive metabolic profile, magnesium, lipase. Urinalysis to look for signs of infection and or dehydration. Normal saline 1 L IV fluid bolus for hydration, supplemental oxygen at 2 L/min by nasal cannula to help raise her oxygen saturation above 91%. Her initial blood pressure was 104/68 however with her small size this is probably about her baseline. Heart rate is in the 90s. Obtain a venous blood gas today help evaluate her pH and oxygen and CO2 exchan ge. Administer metoclopramide 5 mg IV x1 for nausea and bowel motility. Progress Note #2: Time: 19:45 Progress Note Complete blood count shows white blood cell count of 12.2 thousand and. Her hemoglobin was good at 14.7. Her comprehensive metabolic profile showed low sodium of 127, low potassium at 2.9, low chloride of 73, BUN and creatinine were normal at 18 and 0.82. Her lipase was normal at 17. She was alkalotic on her venous blood gas. Her oxygen saturation is 98% on the [address] imaging and urinalysis. Progress Note #3: Time: 20:09 Progress Note On my personal interpretation and review of her CT scan of the chest abdomen and pelvis she does not have any obvious pulmonary embolism or pneumonia. She did have large distended bowel loops but no free air or perforation. Awaiting radiology over read. Her blood pressure had dipped down to 82/52 but patient was still awake and alert and interactive. Will repeat another liter bolus of IV fluids for hydration and try and get her blood pressure closer to 90-100 systolic. UA did have 1+ LE and bacteria present. She reports she was told she had a UTI when she was at the [facility] clinic today and was started on Levaquin with an initial dose taken earlier. Progress Note #4: Time: 20:46 Progress Note I reviewed the radiologist report on the CT angiogram of the chest and abdomen pelvis with IV contrast. They did not see any pulmonary embolism or pneumonia. She does have COPD changes and her abdomen and pelvis have dilated bowel loops concerning for at least a colonic ileus and cannot rule out a partial small bowel obstruction. Her blood pressure was back up to 98/56 as she was getting fluids. At 2045 I called and spoke with Josh MORELAND at the [facility] transfer center. He took some basic information on the patient and will get in touch with the emergency department doctor at [facility] and then call me back. I updated the patient and family about the findings and that I am waiting to hear from [facility] about acceptance for the patient. Will allow her to take a small sip of fluid to take her evening extended release morphine and try some ice chips. If she has vomiting and is unable to keep anything down will hold off on anything further by mouth and would have to consider an NG tube for decompression. 2141 Chelle with [facility] transfer center called back and connected me with Colorectal surgeon extractions technologist for Dr. Wiseman, Dr. Maharaj. I briefly reviewed the patient presentation and symptoms as well as CT scan findings concerning for colonic ileus and possible partial bowel obstruction as she did not have a transition point on CT scan that they could find. He related that the patient had never followed up with the colorectal surgeon or seen anyone in [facility] after discharge. She did not have CT scan showing findings that the colostomy was involved with bowel obstruction and not having active colorectal issue so he advised that the patient would not have to come to [facility] and she could go to whatever facility we would normally admit a patient with bowel obstruction. He said that if they were not able to do that to call them back and he could see what they could do. 2145 D/w Dr. Mcdaniel, extractions technologist surgeon for [facility]. Reviewed that the patient had recent surgery February 2022 with colorectal surgeon in [facility] for stage 4 colon cancer that had progressed through the bowel wall and bone to cause sacral abscess and skin breakdown. She had colostomy placed during the admit at Thanksgiving time 2021. She has findings now for colonic ileus and possible bowel obstruction. She has been having progressive n/v that was worsening. She has low oxygen level to 84 on room air. He advised that he thought it sounded like she would be best served to go to [facility] since they did most recent surgery and she likely needs more advanced wound care than what is available at [facility]. Also with the patient requesting to go to [facility] he was happy to see her in consult if the medicine service would accept for admit but he felt she would be more appropriate to go to [facility] for the reasons he listed out of patient request, recent surgery 7 months ago, advanced wound care needed for sacral wound. 2156 I called back to [facility] Access Center and they took her information again and I informed them that the surgeon extractions technologist for [facility] felt she needed more advanced services than what is available in [place] as well as the patient is requesting [facility] and to see her surgeons that had most recently operated on her. 2215 Josh RN, called back and connected me with Dr. Pickett, ED attending at [facility]. He was willing to accept patient but wanted to make sure she understood that she will be a ED hold while waiting on bed assignment. I set down the phone and went to check with patient and family and they were agreeable to beind ED hold and understood that they may be there waiting for a bed upstairs in the hospital for hours or days. I let Josh know and Dr. Pickett had already said he would accept if she was willing to be ED hold. Will work on arranging transport for the patient to go to ED at [facility]. Continue with IVF for pressure support but her baseline blood pressure is likely 80-100 systolic. 0125 [facility] here to take the patient to [facility] ED. Diagnostic Imaging Diagonstic Imaging: CT Plain Films/CT/US/NM/MRI: chest, abdomen, pelvis Comments NAME: LAURA SANTOS [facility] REC#: [id number] PT STATUS: REG ER : 1955 PHYSICIAN: CLARENCE MCCABE MD ADMIT DATE: 10/12/22/ER FS Draft Date of Exam:10/12/22 CT LINDA CHEST/NOANG ABD-PELV W INDICATION: Hypoxia, n/v, concern for bowel obstruction from plain film TECHNIQUE: CTA chest, abdomen and pelvis. Thin axial sections through the chest, abdomen and pelvis were obtained following intravenous contrast bolus. Multiplanar MIP images were reconstructed and reviewed. All CT scans use one or more of the following dose optimizing techniques: automated exposure control, MA and/or KvP adjustment based on patient size and exam type or iterative reconstruction. HISTORY: Hypoxia, nausea, vomiting and abdominal distention. FINDINGS: There are mild emphysematous changes. There are no suspicious pulmonary nodules, masses or infiltrates. There is no pleural or pericardial fluid. There is no pneumothorax. The thoracic aorta is normal in caliber and without evidence of dissection. There is no filling defect within the pulmonary arteries to suggest pulmonary embolism. There is no pathologically enlarged adenopathy in the chest. The liver is normal in size and without focal lesion. There are dilated loops of bowel with air-fluid levels. This appears to be predominantly large colon. There is no free air. There is no ascites. There is a Hassan catheter in the bladder. There are degenerative changes in the spine. IMPRESSION: 1. Marked distention of the colon most suspect for colonic ileus as there is also a moderate amount of retained fecal material. Possibility of obstruction cannot be excluded. Recommend clinical correlation and follow up imaging, as warranted. 2. Mild emphysematous changes in the lungs. 3. No other acute abnormality in the abnormality in the chest, abdomen or pelvis. Dictated on workstation # [id number] Dict: 10/12/222029 Trans: 10/12/222042 [facility] [id number] Interpreted by: TY KURTZ MD Electronically signed by: Reviewed: Reviewed by Me Departure Impression Primary Impression: Hypoxia Additional Impressions: Nausea and vomiting Qualified Codes: R11.14 - Bilious vomiting Paralytic ileus of small intestine and colon Small bowel obstruction, partial Disposition: 02 XFER SHT-TRM HOSP Condition: Stable Transfer Transfer Reason: Patient preference Time Spoke to Accepting Phy: 22:16 Transfer Progress Notes 2045 I called to [facility] access Center and spoke with MERLY Moreno. He took basic information and will call back after he connects with the ED provider at [facility]. 2141 [facility] Access Center called back with Dr. Maharaj the colorectal surgeon extractions technologist for Dr. Maya Wiseman. I reviewed the patient presentation and medical complaints as well as the CT scan report from our radiologi Transfer Facility: [facility] Method of Transfer: EMS Departure-Patient Inst. Referrals: HIGINIO ANDRADE MD (PCP/Family) Primary Care Physician CLARENCE MCCABE MD Oct 12, 2022 18:36
[2022-10-12 18:50] LABS: BASOPHILS % (AUTO) 0 % (0-10); EOSINOPHILS % (AUTO) 0 % (0-10); HEMATOCRIT 43 % (35-52); HEMOGLOBIN 14.7 g/dL (11.5-16.0); LYMPHOCYTES # (AUTO) 0.8 10^3/uL (1.0-4.0); LYMPHOCYTES % (AUTO) 6 % (12-44); MEAN CORPUSCULAR HEMOGLOBIN 30 pg (25-34); MEAN CORPUSCULAR HGB CONC 34 g/dL (32-36); MEAN CORPUSCULAR VOLUME 88 fL (80-99); MEAN PLATELET VOLUME 9.3 fL (9.0-12.2); MONOCYTES % (AUTO) 8 % (0-12); NEUTROPHILS # (AUTO) 10.3 10^3/uL (1.8-7.8); NEUTROPHILS % (AUTO) 85 % (42-75); PLATELET COUNT 469 10^3/uL (130-400); WHITE BLOOD COUNT 12.2 10^3/uL (4.3-11.0)
[2022-10-12 19:26] LABS: POTASSIUM 2.9 MMOL/L (3.6-5.0)
[2022-10-12 19:27] LABS: ALBUMIN 3.4 GM/DL (3.2-4.5); BILIRUBIN,TOTAL 0.7 MG/DL (0.1-1.0); CALCIUM 9.6 MG/DL (8.5-10.1); CREATININE SERUM 0.82 MG/DL (0.60-1.30); MAGNESIUM 2.2 MG/DL (1.6-2.4); TOTAL PROTEIN 6.7 GM/DL (6.4-8.2)
[2022-10-12] MEDS ORDERED: NS 100 ML (IVPB) BAG IV ONE (20:00)
[2022-10-12] MEDS ORDERED: CATHETER FLUSH 10 ML SYR IV PRN (20:00)
[2022-10-12] MEDS ORDERED: HOLD METFORMIN - RECEIVED CONTRAST 20 ML VIAL IV SCH (20:00)
[2022-10-12] MEDS ORDERED: IOHEXOL 350 MG/ML 100 ML (OMNIPAQUE 350) VIAL IV ONE (20:00)
[2022-10-12 20:05] LABS: ATYPICAL LYMPHOCYTES 3 %; BAND NEUTROPHILS 11 %; BASOPHILS % (MANUAL) 1 %; EOSINOPHILS % (MANUAL) 1 %; LYMPHOCYTES % (MANUAL) 4 %; METAMYELOCYTES % 1 %; MONOCYTES % (MANUAL) 3 %; NEUTROPHILS % (MANUAL) 73 %; REACTIVE LYMPHOCYTES 3 %
[2022-10-12 20:06] LABS: PLATELET ESTIMATE INCREASED; RBC MORPH NORMAL
[2022-10-12 20:12] LABS: CLARITY,URINE TURBID; COLOR,URINE YELLOW; GLUCOSE, URINE (UA) NEGATIVE (NEGATIVE); KETONES,URINE NEGATIVE (NEGATIVE); LEUKOCYTE ESTERASE ,URINE 1+ (NEGATIVE); NITRITE,URINE NEGATIVE (NEGATIVE); PROTEIN,URINE TRACE (NEGATIVE)
[2022-10-12 20:21] LABS: RBC,URINE 0-2 /HPF
[2022-10-12 20:22] LABS: BACTERIA,URINE LARGE /HPF; RENAL EPITHELIAL CELLS,URINE RARE /HPF; SQUAMOUS EPITHELIAL CELL,UR RARE /HPF
[2022-10-12 20:26] LABS: BILIRUBIN,URINE 1+ (NEGATIVE)
--- NOTE | 2022-10-12 20:43 | Diagnostic Imaging Report ---
INDICATION: Hypoxia, n/v, concern for bowel obstruction from plain film TECHNIQUE: CTA chest, abdomen and pelvis. Thin axial sections through the chest, abdomen and pelvis were obtained following intravenous contrast bolus. Multiplanar MIP images were reconstructed and reviewed. All CT scans use one or more of the following dose optimizing techniques: automated exposure control, MA and/or KvP adjustment based on patient size and exam type or iterative reconstruction. HISTORY: Hypoxia, nausea, vomiting and abdominal distention. FINDINGS: There are mild emphysematous changes. There are no suspicious pulmonary nodules, masses or infiltrates. There is no pleural or pericardial fluid. There is no pneumothorax. The thoracic aorta is normal in caliber and without evidence of dissection. There is no filling defect within the pulmonary arteries to suggest pulmonary embolism. There is no pathologically enlarged adenopathy in the chest. The liver is normal in size and without focal lesion. There are dilated loops of bowel with air-fluid levels. This appears to be predominantly large colon. There is no free air. There is no ascites. There is a Hassan catheter in the bladder. There are degenerative changes in the spine. IMPRESSION: 1. Marked distention of the colon most suspect for colonic ileus as there is also a moderate amount of retained fecal material. Possibility of obstruction cannot be excluded. Recommend clinical correlation and follow up imaging, as warranted. 2. Mild emphysematous changes in the lungs. 3. No other acute abnormality in the abnormality in the chest, abdomen or pelvis. Dictated by: Dictated on workstation # [id number]
[2022-10-12] MEDS ORDERED: NS IV 1000 ML 1,000 ML ONE (22:58)
== END 2022-10-13 01:30 | disposition short-term general hospital (02) ==
LOC: EDUNIT# 18:13 → ER FS 18:14
DX: K56.600 Partial intestinal obstruction, unspecified as to cause (principal); K56.0 Paralytic ileus; R09.02 Hypoxemia; F17.210 Nicotine dependence, cigarettes, uncomplicated; Z28.311 Partially vaccinated for COVID-19
CPT/HCPCS: 36415; 71275; 74177; 80053; 81000; 82805; 83690; 83735; 85007; 85027; 87077; 87088